=== PATIENT | female | born 1960 | race Caucasian/White ===

== ENCOUNTER 2019-04-30 17:52 | Inpatient (IN) | payer OTHER ==
[2019-04-30] MEDS ORDERED: HYDROmorphone 1 MG/ML Syringe IVPUSH ONE ×2 (18:01→19:55)
[2019-04-30] MEDS ORDERED: Ondansetron 4 MG/2 ML SDV IVPUSH ONE (18:02)
[2019-04-30] MEDS ORDERED: Sodium Chloride 0.9% 1,000 ML IV ONE ×2 (18:24→20:06)
[2019-04-30] MEDS: Sodium Chloride 0.9% 10 ML Syringe FLUSH PRN (18:28)
[2019-04-30 18:33] LABS: CHLORIDE,CL 101 mmol/L (98-107); SODIUM,NA 136 mmol/L (136-145)
[2019-04-30] MEDS ORDERED: Iopamidol 755 Mg/ML 100 ML Bottle IVPUSH ONE (19:13)
--- NOTE | 2019-04-30 20:00 | EDM.PDOC ---
ED HPI GENERAL MEDICAL PROBLEM - General Chief Complaint: Abdominal Pain Stated Complaint: ABDOMINAL PAIN Time Seen by Provider: 04/30/19 18:23 Source of Information: Reports: Patient History Limitations: Reports: No Limitations - History of Present Illness INITIAL COMMENTS - FREE TEXT/NARRATIVE: Patient comes in with complaint of abdominal pain. Pain started around noon. Upper abdominal/bilateral. Similar pain in past when she has had flares of pancreatitis. Always has low level elevation of LFTs/lipase/amylase. Extensive abdominal surgical history. 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 Recently needed ileostomy several years ago. Also has had gallbladder and appendix removed in past. Thinks flare may be due to driving all day in car yesterday/not being able to move around. Noticed transit time increased for morning coffee intake to when it appeared in her bag. No fevers/chills. No emesis. Has nausea. Denies HEENT changes/URI complaints. No respiratory changes such as cough/wheez/sob. No chest pain/back pain complaints. Denies hematuria/UTI complaints. No focal neuro changes/rashes. Says she usually recovers from pancreatitis episodes well when given IV fluids and kept NPO for a day or two. - Related Data Allergies Allergy/AdvReac Type Severity Reaction Status Date / Time morphine Allergy Itching Verified 04/30/19 18:00 Home Meds: Home Meds Acetaminophen [Tylenol] 650 mg PO Q6HR PRN 04/30/19 [History] Cyclobenzaprine [Flexeril] 10 mg PO TID PRN 04/30/19 [History] Ibuprofen 400 mg PO Q6HR PRN 04/30/19 [History] Past Medical History HEENT History: Reports: Cataract, Impaired Vision Gastrointestinal History: Reports: Colon Polyp, Pancreatitis, Other (See Below) (Familial Polyposis Coli) Musculoskeletal History: Reports: Fracture Neurological History: Reports: Migraines, Vertigo Psychiatric History: Reports: Anxiety, Depression Endocrine/Metabolic History: Reports: Other (See Below) Other Endocrine/Metabolic History: 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, - Infectious Disease History Infectious Disease History: Reports: Chicken Pox, Measles, Mumps - Past Surgical History HEENT Surgical History: Reports: Oral Surgery GI Surgical History: Reports: Cholecystectomy, Colostomy, Other (See Below) Other GI Surgeries/Procedures: Stents, scar tissue surgery Female Surgical History: Reports: Hysterectomy Social & Family History - Family History Cardiac: Reports: Afib, Hypertension, [place] Respiratory: Reports: Asthma, COPD GI: Reports: Cirrhosis, Hepatitis : Reports: Renal Disease/Insufficiency Neurological: Reports: Alzheimers Disease Endocrine/Metabolic: Reports: Diabetes, type II Oncologic: Reports: Colon - Tobacco Use Smoking Status *Q: Current Every Day Smoker Years of Tobacco use: 45 Packs/Tins Daily: 0.5 - Caffeine Use Caffeine Use: Reports: Coffee - Alcohol Use Alcohol Use History: Yes Date of Last Drink: 04/29/19 (Single alcoholic drink yesterday) Alcohol Use Frequency: Rarely - Recreational Drug Use Recreational Drug Use: No ED ROS GENERAL - Review of Systems Review Of Systems: ROS reveals no pertinent complaints other than HPI. ED EXAM, GENERAL - Physical Exam Exam: See Below Exam Limited By: No Limitations General Appearance: Alert, WD/WN, No Apparent Distress, Obese Eye Exam: Bilateral Eye: EOMI, PERRL Ears: Normal External Exam, Hearing Grossly Normal Nose: No: Nasal Deformity, Nasal Swelling, Nasal Drainage Throat/Mouth: Normal Lips, Normal Voice, No Airway Compromise Head: Atraumatic, Normocephalic Neck: Normal Inspection, Supple, Non-Tender, Full Range of Motion Respiratory/Chest: No Respiratory Distress, Lungs Clear, Normal Breath Sounds, No Accessory Muscle Use, Chest Non-Tender Cardiovascular: Normal Peripheral Pulses, Regular Rate, Rhythm, No Edema, No Murmur Peripheral Pulses: 2+: Radial (L), Radial (R) GI/Abdominal: Soft, Tender (mild, diffuse), Other (Has ileostomy bag in place. Site appears normal, non-irrititated. Decreased bowel sounds noted. ). No: Guarding, Rigid, Rebound (Female) Exam: Deferred Rectal (Female) Exam: Deferred Back Exam: Normal Inspection. No: CVA Tenderness (L), CVA Tenderness (R), Muscle Spasm, Paraspinal Tenderness, Vertebral Tenderness Extremities: Normal Range of Motion, Normal Capillary Refill, Slow Capillary Refill (slightly decreased) Neurological: Alert, Oriented, Normal Cognition, Normal Gait, No Motor/Sensory Deficits Psychiatric: Normal Affect, Normal Mood Skin Exam: Warm, Dry, Intact, Normal Color Course - Vital Signs Last Recorded V/S: Last Vital Signs Temp 37.1 C 04/30/19 21:54 Pulse 80 04/30/19 21:54 Resp 12 04/30/19 21:54 BP 162/94 H 04/30/19 21:54 Pulse Ox 98 04/30/19 21:54 - Orders/Labs/Meds Orders: Active Orders 24 hr Category Date Time Status Peripheral IV Care [RC] . DIRECTED Care 04/30/19 18:28 Active Abdomen 2V AP Flat Upright [CR] Stat Exams 04/30/19 18:01 Taken Abdomen Pelvis w wo Cont [CT] Stat Exams 04/30/19 19:10 Taken UA W/MICROSCOPIC [URIN] Stat Lab 04/30/19 18:23 Ordered Sodium Chloride 0.9% [Normal Saline] 1,000 ml Med 04/30/19 20:06 Active IV .BOLUS Sodium Chloride 0.9% [Saline Flush] Med 04/30/19 18:27 Active 10 ml FLUSH ASDIRECTED PRN Peripheral IV Insertion Adult [OM.PC] Routine Oth 04/30/19 18:27 Ordered Medication Orders Hydromorphone HCl (Dilaudid) 0.5 mg IVPUSH Q2H PRN PRN Reason: Pain (moderate 4-6) Sodium Chloride (Normal Saline) 1,000 mls @ 250 mls/hr IV .BOLUS ONE Stop: 05/01/19 00:05 Last Admin: 04/30/19 21:06 Dose: 250 mls/hr Sodium Chloride (Normal Saline) 1,000 mls @ 125 mls/hr IV ASDIRECTED HANNAH Ondansetron HCl (Zofran) 4 mg IVPUSH Q6H PRN PRN Reason: Nausea/Vomiting Sodium Chloride (Saline Flush) 10 ml FLUSH ASDIRECTED PRN PRN Reason: Keep Vein Open Last Admin: 04/30/19 18:28 Dose: 10 ml Labs: Laboratory Tests 04/30/19 04/30/19 Range/Units 18:10 18:10 WBC 12.3 H (4.0-10.2) K/uL RBC 4.77 (3.77-5.09) M/uL Hgb 15.8 H (11.7-15.5) g/dL Hct 44.8 (34.0-46.0) % MCV 93.9 (84.0-98.0) fL MCH 33.1 (28.2-33.3) pg MCHC 35.3 (31.7-36.0) g/dL RDW 13.4 (11.2-14.1) % Plt Count 193 (150-350) K/uL Neut % (Auto) 68.0 (45.0-80.0) % Lymph % (Auto) 22.2 (10.0-50.0) % [place] % (Auto) 8.5 (2.0-14.0) % Eos % (Auto) 0.9 (0.0-5.0) % Baso % (Auto) 0.4 (0.0-2.0) % Neut # (Auto) 8.38 H (1.40-7.00) K/uL Lymph # (Auto) 2.74 (0.50-3.50) K/uL [place] # (Auto) 1.05 H (0.00-1.00) K/uL Eos # (Auto) 0.11 (0.00-0.50) K/uL Baso # (Auto) 0.05 (0.00-0.20) K/uL Sodium 136 (136-145) mmol/L Potassium 3.7 (3.5-5.1) mmol/L Chloride 101 (98-107) mmol/L Carbon Dioxide 21.3 (21.0-32.0) mmol/L BUN 15 (7-18) mg/dL Creatinine 0.81 (0.51-1.17) mg/dL Est Cr Clr Drug Dosing TNP Estimated GFR (MDRD) > 60 mL/min Glucose 98 (74-106) mg/dL Calcium 9.5 (8.5-10.1) mg/dL Total Bilirubin 0.5 (0.2-1.0) mg/dL AST 61 H (15-37) U/L ALT 113 H (12-78) U/L Alkaline Phosphatase 110 (46-116) IU/L Total Protein 7.4 (6.4-8.2) g/dL Albumin 4.0 (3.4-5.0) g/dL Amylase 787 H (25-115) U/L Lipase 6878 H (73-393) U/L Meds: Medications Generic Name Dose Route Start Last Admin Trade Name Freq PRN Reason Stop Dose Admin Hydromorphone HCl 0.5 mg 04/30/19 21:59 Dilaudid IVPUSH Q2H PRN Pain (moderate 4-6) Sodium Chloride 1,000 mls @ 250 mls/hr 04/30/19 20:06 04/30/19 21:06 Normal Saline IV 05/01/19 00:05 250 mls/hr .BOLUS ONE Administration Sodium Chloride 1,000 mls @ 125 mls/hr 04/30/19 22:15 Normal Saline IV ASDIRECTED HANNAH Ondansetron HCl 4 mg 04/30/19 21:59 Zofran IVPUSH Q6H PRN Nausea/Vomiting Sodium Chloride 10 ml 04/30/19 18:27 04/30/19 18:28 Saline Flush FLUSH 10 ml ASDIRECTED PRN Administration Keep Vein Open Discontinued Medications Generic Name Dose Route Start Last Admin Trade Name Freq PRN Reason Stop Dose Admin Hydromorphone HCl 1 mg 04/30/19 18:01 04/30/19 18:20 Dilaudid IVPUSH 04/30/19 18:02 1 mg ONETIME ONE Administration Hydromorphone HCl 1 mg 04/30/19 19:55 04/30/19 20:46 Dilaudid IVPUSH 04/30/19 19:56 1 mg ONETIME ONE Administration Sodium Chloride 1,000 mls @ 500 mls/hr 04/30/19 18:24 04/30/19 18:44 Normal Saline IV 04/30/19 20:23 500 mls/hr .BOLUS ONE Administration Iopamidol 100 ml 04/30/19 19:13 04/30/19 19:48 Isovue-370 (76%) IVPUSH 04/30/19 19:14 100 ml ONETIME ONE Administration Ondansetron HCl 4 mg 04/30/19 18:02 04/30/19 18:18 Zofran IVPUSH 04/30/19 18:03 4 mg ONETIME ONE Administration - Radiology Interpretation Free Text/Narrative:: Xray of abdomen performed followed by CT once pancreatic amylase/lipase noted to be significantly elevated. CT Results Date: 04/30/19 CT Results Time: 21:06 (Changes consistent with pancreatitis. No other acute abnormalities/infection/gangrene noted) - Re-Assessments/Exams Free Text/Narrative Re-Assessment/Exam: 04/30/19 20:05 Mildly elevated WBC. LFTs/Amylase and Lipase elevated. Dilaudid given for pain. NS bolus given. Pain improved. Free Text/Narrative Re-Assessment/Exam: 04/30/19 22:23 Patient admitted to Observation for IV fluids and pain management once CT results indicated pancreatis without any other complications. Departure - Departure Time of Disposition: 21:30 Disposition: Refer to Observation Condition: Good Clinical Impression: Pancreatitis Qualifiers: Chronicity: acute Pancreatitis type: unspecified pancreatitis type Acute pancreatitis complication: no infection or necrosis Qualified Code(s): K85.90 - Acute pancreatitis without necrosis or infection, unspecified - Discharge Information *PRESCRIPTION DRUG MONITORING PROGRAM REVIEWED*: Not Applicable *COPY OF PRESCRIPTION DRUG MONITORING REPORT IN PATIENT DANGELO: Not Applicable - Problem List & Annotations (1) Pancreatitis SNOMED Code(s): 76794599 Code(s): K85.90 - ACUTE PANCREATITIS WITHOUT NECROSIS OR INFECTION, UNSP Status: Acute Priority: High Current Visit: Yes Annotation/Comment:: Acute pancreatitis. Patient does have chronic elevation of lipase/amylase per self report. Also usually has mildly elevated AST and ALT. CT did not indicate abscess or necrosis. Will admit observation, place patient NPO, and give pain and fluid support. Patient reports that she usually improves within several days when pancreatitis flairs. Qualifiers: Chronicity: acute Pancreatitis type: unspecified pancreatitis type Acute pancreatitis complication: no infection or necrosis Qualified Code(s): K85.90 - Acute pancreatitis without necrosis or infection, unspecified (2) Ileostomy in place SNOMED Code(s): 087141470 Code(s): Z93.2 - ILEOSTOMY STATUS Status: Chronic Priority: Low Current Visit: No Annotation/Comment:: No acute concerns at this time (3) LONGTERM (familial polyposis coli) SNOMED Code(s): 15031240 Code(s): D12.6 - BENIGN NEOPLASM OF COLON, UNSPECIFIED Status: Chronic Priority: Low Current Visit: No Annotation/Comment:: History of LONGTERM. Prophylactic removal of colon. - Problem List Review Problem List Initiated/Reviewed/Updated: Yes - My Orders Last 24 Hours: My Active Orders 04/30/19 18:01 Abdomen 2V AP Flat Upright [CR] Stat 04/30/19 18:23 UA W/MICROSCOPIC [URIN] Stat 04/30/19 18:27 Sodium Chloride 0.9% [Saline Flush] 10 ml FLUSH ASDIRECTED PRN Peripheral IV Insertion Adult [OM.PC] Routine 04/30/19 18:28 Peripheral IV Care [RC] . DIRECTED 04/30/19 19:10 Abdomen Pelvis w wo Cont [CT] Stat 04/30/19 20:06 Sodium Chloride 0.9% [Normal Saline] 1,000 ml IV .BOLUS - Assessment/Plan Admission H&P: Please use this note as an admission H&P Last 24 Hours: My Active Orders 04/30/19 18:01 Abdomen 2V AP Flat Upright [CR] Stat 04/30/19 18:23 UA W/MICROSCOPIC [URIN] Stat 04/30/19 18:27 Sodium Chloride 0.9% [Saline Flush] 10 ml FLUSH ASDIRECTED PRN Peripheral IV Insertion Adult [OM.PC] Routine 04/30/19 18:28 Peripheral IV Care [RC] . DIRECTED 04/30/19 19:10 Abdomen Pelvis w wo Cont [CT] Stat 04/30/19 20:06 Sodium Chloride 0.9% [Normal Saline] 1,000 ml IV .BOLUS Assessment:: as above Plan: as above. Admit observation. Anticipate 2 days inpatient care but may need to consider switch to inpatient status in pancreatitis does not improve over this timeframe. Patient stable and appropriate for general supervision.
[2019-04-30] MEDS: HYDROmorphone 0.5 MG/0.5 ML Syringe IVPUSH PRN (22:24)
[2019-04-30] MEDS: Ondansetron 4 MG/2 ML SDV IVPUSH PRN (22:24)
[2019-05-01] MEDS: HYDROmorphone 0.5 MG/0.5 ML Syringe IVPUSH PRN ×4 (00:21→23:30)
[2019-05-01] MEDS: Sodium Chloride 0.9% 1,000 ML IV SCH ×3 (01:22→18:03)
[2019-05-01] MEDS: fentaNYL 100 MCG/2 ML SDV IVPUSH PRN ×9 (01:47→21:29)
[2019-05-01] MEDS: Ondansetron 4 MG/2 ML SDV IVPUSH PRN ×5 (03:41→20:12)
[2019-05-01] MEDS: Sodium Chloride 0.9% 10 ML Syringe FLUSH PRN ×4 (03:42→21:30)
[2019-05-01 07:27] LABS: CHLORIDE,CL 105 mmol/L (98-107); SODIUM,NA 139 mmol/L (136-145)
--- NOTE | 2019-05-01 08:26 | EDM.PDOC ---
ED HPI GENERAL MEDICAL PROBLEM - General Chief Complaint: Abdominal Pain Stated Complaint: ABDOMINAL PAIN Time Seen by Provider: 04/30/19 18:23 Source of Information: Reports: Patient History Limitations: Reports: No Limitations - History of Present Illness INITIAL COMMENTS - FREE TEXT/NARRATIVE: Patient comes in with complaint of abdominal pain. Pain started around noon. Upper abdominal/bilateral. Similar pain in past when she has had flares of pancreatitis. Always has low level elevation of LFTs/lipase/amylase. Extensive abdominal surgical history. 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 Recently needed ileostomy several years ago. Also has had gallbladder and appendix removed in past. Thinks flare may be due to driving all day in car yesterday/not being able to move around. Noticed transit time increased for morning coffee intake to when it appeared in her bag. No fevers/chills. No emesis. Has nausea. Denies HEENT changes/URI complaints. No respiratory changes such as cough/wheez/sob. No chest pain/back pain complaints. Denies hematuria/UTI complaints. No focal neuro changes/rashes. Says she usually recovers from pancreatitis episodes well when given IV fluids and kept NPO for a day or two. Abdomen Pain Score (Numeric/FACES): 7 - Related Data Allergies Allergy/AdvReac Type Severity Reaction Status Date / Time morphine Allergy Itching Verified 04/30/19 18:00 Home Meds: Home Meds Acetaminophen [Tylenol] 650 mg PO Q6HR PRN 04/30/19 [History] Cyclobenzaprine [Flexeril] 10 mg PO TID PRN 04/30/19 [History] Ibuprofen 400 mg PO Q6HR PRN 04/30/19 [History] Past Medical History HEENT History: Reports: Cataract, Impaired Vision Gastrointestinal History: Reports: Colon Polyp, Pancreatitis, Other (See Below) (Familial Polyposis Coli) Musculoskeletal History: Reports: Fracture Neurological History: Reports: Migraines, Vertigo Psychiatric History: Reports: Anxiety, Depression Endocrine/Metabolic History: Reports: Other (See Below) Other Endocrine/Metabolic History: 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, - Infectious Disease History Infectious Disease History: Reports: Chicken Pox, Measles, Mumps - Past Surgical History HEENT Surgical History: Reports: Oral Surgery GI Surgical History: Reports: Cholecystectomy, Colostomy, Other (See Below) Other GI Surgeries/Procedures: Stents, scar tissue surgery Female Surgical History: Reports: Hysterectomy Social & Family History - Family History Cardiac: Reports: Afib, Hypertension, [place] Respiratory: Reports: Asthma, COPD GI: Reports: Cirrhosis, Hepatitis : Reports: Renal Disease/Insufficiency Neurological: Reports: Alzheimers Disease Endocrine/Metabolic: Reports: Diabetes, type II Oncologic: Reports: Colon - Tobacco Use Smoking Status *Q: Current Every Day Smoker Years of Tobacco use: 45 Packs/Tins Daily: 0.5 - Caffeine Use Caffeine Use: Reports: Coffee - Alcohol Use Date of Last Drink: 04/29/19 (Single alcoholic drink yesterday) - Recreational Drug Use Recreational Drug Use: No ED ROS GENERAL - Review of Systems Review Of Systems: See Below Constitutional: Reports: No Symptoms HEENT: Reports: No Symptoms Respiratory: Reports: No Symptoms Cardiovascular: Reports: No Symptoms Endocrine: Reports: No Symptoms ED EXAM, GENERAL - Physical Exam Exam: See Below Free Text/Narrative:: Patient comes in with complaint of abdominal pain. Pain started around noon. Upper abdominal/bilateral. Similar pain in past when she has had flares of pancreatitis. Always has low level elevation of LFTs/lipase/amylase. Extensive abdominal surgical history. 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 Recently needed ileostomy several years ago. Also has had gallbladder and appendix removed in past. Thinks flare may be due to driving all day in car yesterday/not being able to move around. Noticed transit time increased for morning coffee intake to when it appeared in her bag. No fevers/chills. No emesis. Has nausea. Denies HEENT changes/URI complaints. No respiratory changes such as cough/wheez/sob. No chest pain/back pain complaints. Denies hematuria/UTI complaints. No focal neuro changes/rashes. Says she usually recovers from pancreatitis episodes well when given IV fluids and kept NPO for a day or two. Exam Limited By: No Limitations General Appearance: Alert, WD/WN, No Apparent Distress, Obese Ears: Normal External Exam, Hearing Grossly Normal Nose: No: Nasal Deformity, Nasal Swelling, Nasal Drainage Throat/Mouth: Normal Lips, Normal Voice, No Airway Compromise Head: Atraumatic, Normocephalic Neck: Normal Inspection, Supple, Non-Tender, Full Range of Motion Respiratory/Chest: No Respiratory Distress, Lungs Clear, Normal Breath Sounds, No Accessory Muscle Use, Chest Non-Tender Cardiovascular: Normal Peripheral Pulses, Regular Rate, Rhythm, No Edema, No Murmur Peripheral Pulses: 2+: Radial (L), Radial (R) GI/Abdominal: Soft, Tender (mild, diffuse), Other (Has ileostomy bag in place. Site appears normal, non-irrititated. Decreased bowel sounds noted. ). No: Guarding, Rigid, Rebound Back Exam: Normal Inspection. No: CVA Tenderness (L), CVA Tenderness (R), Muscle Spasm, Paraspinal Tenderness, Vertebral Tenderness Extremities: Normal Range of Motion, Normal Capillary Refill, Slow Capillary Refill (slightly decreased) Neurological: Alert, Oriented, Normal Cognition, Normal Gait, No Motor/Sensory Deficits Psychiatric: Normal Affect, Normal Mood Skin Exam: Warm, Dry, Intact, Normal Color Course - Vital Signs Last Recorded V/S: Last Vital Signs Temp 36.5 C 05/01/19 06:00 Pulse 81 05/01/19 06:00 Resp 14 05/01/19 06:00 BP 159/79 H 05/01/19 06:00 Pulse Ox 98 05/01/19 06:00 - Orders/Labs/Meds Orders: Active Orders 24 hr Category Date Time Status Peripheral IV Care [RC] . DIRECTED Care 04/30/19 18:28 Active Abdomen 2V AP Flat Upright [CR] Stat Exams 04/30/19 18:01 Taken Abdomen Pelvis w wo Cont [CT] Stat Exams 04/30/19 19:10 Taken Sodium Chloride 0.9% [Saline Flush] Med 04/30/19 18:27 Active 10 ml FLUSH ASDIRECTED PRN Peripheral IV Insertion Adult [OM.PC] Routine Oth 04/30/19 18:27 Ordered Medication Orders Fentanyl (Sublimaze) 50 mcg IVPUSH Q2HR PRN PRN Reason: Pain (severe 7-10) Last Admin: 05/01/19 08:08 Dose: 50 mcg Admin: 05/01/19 05:59 Dose: 50 mcg Admin: 05/01/19 03:43 Dose: 50 mcg Admin: 05/01/19 01:47 Dose: 50 mcg Hydromorphone HCl (Dilaudid) 0.5 mg IVPUSH Q2H PRN PRN Reason: Pain (moderate 4-6) Last Admin: 05/01/19 00:21 Dose: 0.5 mg Admin: 04/30/19 22:24 Dose: 0.5 mg Sodium Chloride (Normal Saline) 1,000 mls @ 125 mls/hr IV ASDIRECTED HANNAH Last Admin: 05/01/19 01:22 Dose: 125 mls/hr Ondansetron HCl (Zofran) 4 mg IVPUSH Q4HR PRN PRN Reason: Nausea/Vomiting Last Admin: 05/01/19 08:06 Dose: 4 mg Sodium Chloride (Saline Flush) 10 ml FLUSH ASDIRECTED PRN PRN Reason: Keep Vein Open Last Admin: 05/01/19 08:10 Dose: 10 ml Admin: 05/01/19 03:42 Dose: 10 ml Admin: 04/30/19 18:28 Dose: 10 ml Labs: Laboratory Tests 04/30/19 04/30/19 04/30/19 Range/Units 18:10 18:10 18:23 WBC 12.3 H (4.0-10.2) K/uL RBC 4.77 (3.77-5.09) M/uL Hgb 15.8 H (11.7-15.5) g/dL Hct 44.8 (34.0-46.0) % MCV 93.9 (84.0-98.0) fL MCH 33.1 (28.2-33.3) pg MCHC 35.3 (31.7-36.0) g/dL RDW 13.4 (11.2-14.1) % Plt Count 193 (150-350) K/uL Neut % (Auto) 68.0 (45.0-80.0) % Lymph % (Auto) 22.2 (10.0-50.0) % [place] % (Auto) 8.5 (2.0-14.0) % Eos % (Auto) 0.9 (0.0-5.0) % Baso % (Auto) 0.4 (0.0-2.0) % Neut # (Auto) 8.38 H (1.40-7.00) K/uL Lymph # (Auto) 2.74 (0.50-3.50) K/uL [place] # (Auto) 1.05 H (0.00-1.00) K/uL Eos # (Auto) 0.11 (0.00-0.50) K/uL Baso # (Auto) 0.05 (0.00-0.20) K/uL Sodium 136 (136-145) mmol/L Potassium 3.7 (3.5-5.1) mmol/L Chloride 101 (98-107) mmol/L Carbon Dioxide 21.3 (21.0-32.0) mmol/L BUN 15 (7-18) mg/dL Creatinine 0.81 (0.51-1.17) mg/dL Est Cr Clr Drug Dosing TNP Estimated GFR (MDRD) > 60 mL/min Glucose 98 (74-106) mg/dL Calcium 9.5 (8.5-10.1) mg/dL Total Bilirubin 0.5 (0.2-1.0) mg/dL AST 61 H (15-37) U/L ALT 113 H (12-78) U/L Alkaline Phosphatase 110 (46-116) IU/L Total Protein 7.4 (6.4-8.2) g/dL Albumin 4.0 (3.4-5.0) g/dL Amylase 787 H (25-115) U/L Lipase 6878 H (73-393) U/L Specimen Type Urinblad Urine Color Yellow Urine Appearance Clear Urine pH 5.0 (5.0-9.0) Ur Specific [place] <= 1.005 (1.005-1.030) Urine Protein Negative (NEGATIVE) mg/dL Urine Glucose (UA) Negative (NEGATIVE) mg/dL Urine Ketones Negative (NEGATIVE) mg/dL Urine Occult Blood Negative (NEGATIVE) Urine Nitrite Negative (NEGATIVE) Urine Bilirubin Negative (NEGATIVE) Urine Urobilinogen 0.2 (0.2-1.0) E.U./dL Ur Leukocyte Esterase Negative (NEGATIVE) Urine RBC 0-5 /HPF Urine WBC 5-10 H /HPF Ur Epithelial Cells Many H /LPF Urine Bacteria Few (NONE TO FEW) /HPF Hyaline Casts Rare H (NEGATIVE) /LPF Urine Yeast Rare H (NEGATIVE) /HPF Meds: Medications Generic Name Dose Route Start Last Admin Trade Name Freq PRN Reason Stop Dose Admin Fentanyl 50 mcg 05/01/19 01:26 05/01/19 08:08 Sublimaze IVPUSH 50 mcg Q2HR PRN Administration Pain (severe 7-10) Hydromorphone HCl 0.5 mg 04/30/19 21:59 05/01/19 00:21 Dilaudid IVPUSH 0.5 mg Q2H PRN Administration Pain (moderate 4-6) Sodium Chloride 1,000 mls @ 125 mls/hr 04/30/19 22:15 05/01/19 01:22 Normal Saline IV 125 mls/hr ASDIRECTED HANNAH Administration Ondansetron HCl 4 mg 05/01/19 07:51 05/01/19 08:06 Zofran IVPUSH 4 mg Q4HR PRN Administration Nausea/Vomiting Sodium Chloride 10 ml 04/30/19 18:27 05/01/19 08:10 Saline Flush FLUSH 10 ml ASDIRECTED PRN Administration Keep Vein Open Discontinued Medications Generic Name Dose Route Start Last Admin Trade Name Freq PRN Reason Stop Dose Admin Hydromorphone HCl 1 mg 04/30/19 18:01 04/30/19 18:20 Dilaudid IVPUSH 04/30/19 18:02 1 mg ONETIME ONE Administration Hydromorphone HCl 1 mg 04/30/19 19:55 04/30/19 20:46 Dilaudid IVPUSH 04/30/19 19:56 1 mg ONETIME ONE Administration Sodium Chloride 1,000 mls @ 500 mls/hr 04/30/19 18:24 04/30/19 18:44 Normal Saline IV 04/30/19 20:23 500 mls/hr .BOLUS ONE Administration Sodium Chloride 1,000 mls @ 250 mls/hr 04/30/19 20:06 04/30/19 21:06 Normal Saline IV 05/01/19 00:05 250 mls/hr .BOLUS ONE Administration Iopamidol 100 ml 04/30/19 19:13 04/30/19 19:48 Isovue-370 (76%) IVPUSH 04/30/19 19:14 100 ml ONETIME ONE Administration Ondansetron HCl 4 mg 04/30/19 18:02 04/30/19 18:18 Zofran IVPUSH 04/30/19 18:03 4 mg ONETIME ONE Administration Ondansetron HCl 4 mg 04/30/19 21:59 05/01/19 03:41 Zofran IVPUSH 4 mg Q6H PRN Administration Nausea/Vomiting Departure - Departure Disposition: Refer to Observation Condition: Good Clinical Impression: Pancreatitis Qualifiers: Chronicity: acute Pancreatitis type: unspecified pancreatitis type Acute pancreatitis complication: no infection or necrosis Qualified Code(s): K85.90 - Acute pancreatitis without necrosis or infection, unspecified - Discharge Information *PRESCRIPTION DRUG MONITORING PROGRAM REVIEWED*: Not Applicable *COPY OF PRESCRIPTION DRUG MONITORING REPORT IN PATIENT DANGELO: Not Applicable
--- NOTE | 2019-05-01 10:16 | PCM.PN ---
- General Info Date of Service: 05/01/19 Admission Dx/Problem (Free Text): Pancreatitis Subjective Update: Complaining of diffuse abdominal pain more severe in epigastrium and RUQ. No fever or chills. Pain controlled with fentanyl. No shortness of breath. No chest pain. - Patient Data Vitals - Most Recent: Last Vital Signs Temp 36.5 C 05/01/19 06:00 Pulse 81 05/01/19 06:00 Resp 14 05/01/19 06:00 BP 159/79 H 05/01/19 06:00 Pulse Ox 98 05/01/19 06:00 Weight - Most Recent: 78.245 kg I&O - Last 24 Hours: Intake & Output 04/30/19 05/01/19 05/01/19 22:59 06:59 14:59 Intake Total 1000 Output Total 400 Balance 600 Lab Results Last 24 Hours: Laboratory Results - last 24 hr 04/30/19 04/30/19 04/30/19 Range/Units 18:10 18:10 18:23 WBC 12.3 H (4.0-10.2) K/uL RBC 4.77 (3.77-5.09) M/uL Hgb 15.8 H (11.7-15.5) g/dL Hct 44.8 (34.0-46.0) % MCV 93.9 (84.0-98.0) fL MCH 33.1 (28.2-33.3) pg MCHC 35.3 (31.7-36.0) g/dL RDW 13.4 (11.2-14.1) % Plt Count 193 (150-350) K/uL Neut % (Auto) 68.0 (45.0-80.0) % Lymph % (Auto) 22.2 (10.0-50.0) % [place] % (Auto) 8.5 (2.0-14.0) % Eos % (Auto) 0.9 (0.0-5.0) % Baso % (Auto) 0.4 (0.0-2.0) % Neut # (Auto) 8.38 H (1.40-7.00) K/uL Lymph # (Auto) 2.74 (0.50-3.50) K/uL [place] # (Auto) 1.05 H (0.00-1.00) K/uL Eos # (Auto) 0.11 (0.00-0.50) K/uL Baso # (Auto) 0.05 (0.00-0.20) K/uL Sodium 136 (136-145) mmol/L Potassium 3.7 (3.5-5.1) mmol/L Chloride 101 (98-107) mmol/L Carbon Dioxide 21.3 (21.0-32.0) mmol/L BUN 15 (7-18) mg/dL Creatinine 0.81 (0.51-1.17) mg/dL Est Cr Clr Drug Dosing TNP Estimated GFR (MDRD) > 60 mL/min Glucose 98 (74-106) mg/dL Calcium 9.5 (8.5-10.1) mg/dL Magnesium (1.8-2.4) mg/dL Total Bilirubin 0.5 (0.2-1.0) mg/dL AST 61 H (15-37) U/L ALT 113 H (12-78) U/L Alkaline Phosphatase 110 (46-116) IU/L Total Protein 7.4 (6.4-8.2) g/dL Albumin 4.0 (3.4-5.0) g/dL Amylase 787 H (25-115) U/L Lipase 6878 H (73-393) U/L Specimen Type Urinblad Urine Color Yellow Urine Appearance Clear Urine pH 5.0 (5.0-9.0) Ur Specific [place] <= 1.005 (1.005-1.030) Urine Protein Negative (NEGATIVE) mg/dL Urine Glucose (UA) Negative (NEGATIVE) mg/dL Urine Ketones Negative (NEGATIVE) mg/dL Urine Occult Blood Negative (NEGATIVE) Urine Nitrite Negative (NEGATIVE) Urine Bilirubin Negative (NEGATIVE) Urine Urobilinogen 0.2 (0.2-1.0) E.U./dL Ur Leukocyte Esterase Negative (NEGATIVE) Urine RBC 0-5 /HPF Urine WBC 5-10 H /HPF Ur Epithelial Cells Many H /LPF Urine Bacteria Few (NONE TO FEW) /HPF Hyaline Casts Rare H (NEGATIVE) /LPF Urine Yeast Rare H (NEGATIVE) /HPF 05/01/19 05/01/19 05/01/19 Range/Units 06:59 06:59 06:59 WBC 11.7 H (4.0-10.2) K/uL RBC 4.37 (3.77-5.09) M/uL Hgb 14.3 D (11.7-15.5) g/dL Hct 41.9 (34.0-46.0) % MCV 95.9 (84.0-98.0) fL MCH 32.7 (28.2-33.3) pg MCHC 34.1 (31.7-36.0) g/dL RDW 13.5 (11.2-14.1) % Plt Count 143 L (150-350) K/uL Neut % (Auto) 78.0 (45.0-80.0) % Lymph % (Auto) 13.9 (10.0-50.0) % [place] % (Auto) 7.6 (2.0-14.0) % Eos % (Auto) 0.3 (0.0-5.0) % Baso % (Auto) 0.2 (0.0-2.0) % Neut # (Auto) 9.12 H (1.40-7.00) K/uL Lymph # (Auto) 1.62 (0.50-3.50) K/uL [place] # (Auto) 0.89 (0.00-1.00) K/uL Eos # (Auto) 0.03 (0.00-0.50) K/uL Baso # (Auto) 0.02 (0.00-0.20) K/uL Sodium 139 (136-145) mmol/L Potassium 3.4 L (3.5-5.1) mmol/L Chloride 105 (98-107) mmol/L Carbon Dioxide 23.3 (21.0-32.0) mmol/L BUN 10 (7-18) mg/dL Creatinine 0.70 (0.51-1.17) mg/dL Est Cr Clr Drug Dosing 80.01 Estimated GFR (MDRD) > 60 mL/min Glucose 109 H (74-106) mg/dL Calcium 8.0 L D (8.5-10.1) mg/dL Magnesium 1.3 L (1.8-2.4) mg/dL Total Bilirubin 0.7 (0.2-1.0) mg/dL AST 34 (15-37) U/L ALT 80 H (12-78) U/L Alkaline Phosphatase 99 (46-116) IU/L Total Protein 6.1 L (6.4-8.2) g/dL Albumin 3.1 L (3.4-5.0) g/dL Amylase 782 H (25-115) U/L Lipase 5626 H (73-393) U/L Specimen Type Urine Color Urine Appearance Urine pH (5.0-9.0) Ur Specific [place] (1.005-1.030) Urine Protein (NEGATIVE) mg/dL Urine Glucose (UA) (NEGATIVE) mg/dL Urine Ketones (NEGATIVE) mg/dL Urine Occult Blood (NEGATIVE) Urine Nitrite (NEGATIVE) Urine Bilirubin (NEGATIVE) Urine Urobilinogen (0.2-1.0) E.U./dL Ur Leukocyte Esterase (NEGATIVE) Urine RBC /HPF Urine WBC /HPF Ur Epithelial Cells /LPF Urine Bacteria (NONE TO FEW) /HPF Hyaline Casts (NEGATIVE) /LPF Urine Yeast (NEGATIVE) /HPF Med Orders - Current: Current Medications Fentanyl (Sublimaze) 50 mcg IVPUSH Q2HR PRN PRN Reason: Pain (severe 7-10) Last Admin: 05/01/19 08:08 Dose: 50 mcg Hydromorphone HCl (Dilaudid) 0.5 mg IVPUSH Q2H PRN PRN Reason: Pain (moderate 4-6) Last Admin: 05/01/19 00:21 Dose: 0.5 mg Sodium Chloride (Normal Saline) 1,000 mls @ 125 mls/hr IV ASDIRECTED [facility] Last Admin: 05/01/19 09:42 Dose: 125 mls/hr Ondansetron HCl (Zofran) 4 mg IVPUSH Q4HR PRN PRN Reason: Nausea/Vomiting Last Admin: 05/01/19 08:06 Dose: 4 mg Sodium Chloride (Saline Flush) 10 ml FLUSH ASDIRECTED PRN PRN Reason: Keep Vein Open Last Admin: 05/01/19 08:10 Dose: 10 ml Discontinued Medications Hydromorphone HCl (Dilaudid) 1 mg IVPUSH ONETIME ONE Stop: 04/30/19 18:02 Last Admin: 04/30/19 18:20 Dose: 1 mg Hydromorphone HCl (Dilaudid) 1 mg IVPUSH ONETIME ONE Stop: 04/30/19 19:56 Last Admin: 04/30/19 20:46 Dose: 1 mg Sodium Chloride (Normal Saline) 1,000 mls @ 500 mls/hr IV .BOLUS ONE Stop: 04/30/19 20:23 Last Admin: 04/30/19 18:44 Dose: 500 mls/hr Sodium Chloride (Normal Saline) 1,000 mls @ 250 mls/hr IV .BOLUS ONE Stop: 05/01/19 00:05 Last Admin: 04/30/19 21:06 Dose: 250 mls/hr Iopamidol (Isovue-370 (76%)) 100 ml IVPUSH ONETIME ONE Stop: 04/30/19 19:14 Last Admin: 04/30/19 19:48 Dose: 100 ml Ondansetron HCl (Zofran) 4 mg IVPUSH ONETIME ONE Stop: 04/30/19 18:03 Last Admin: 04/30/19 18:18 Dose: 4 mg Ondansetron HCl (Zofran) 4 mg IVPUSH Q6H PRN PRN Reason: Nausea/Vomiting Last Admin: 05/01/19 03:41 Dose: 4 mg - Exam Lungs: Clear to Auscultation, Normal Respiratory Effort Cardiovascular: Regular Rate, Regular Rhythm GI/Abdominal Exam: Normal Bowel Sounds, Soft, Tender (Moderate to severe diffuse tenderness.). No: Distended, Guarding, Rebound - Problem List & Annotations (1) Pancreatitis SNOMED Code(s): 13604281 Code(s): K85.90 - ACUTE PANCREATITIS WITHOUT NECROSIS OR INFECTION, UNSP Status: Acute Priority: High Current Visit: Yes Qualifiers: Chronicity: acute Pancreatitis type: unspecified pancreatitis type Acute pancreatitis complication: no infection or necrosis Qualified Code(s): K85.90 - Acute pancreatitis without necrosis or infection, unspecified Annotation/Comment:: Acute pancreatitis. Patient does have chronic elevation of lipase/amylase per self report. Also usually has mildly elevated AST and ALT. CT did not indicate abscess or necrosis. Will admit observation, place patient NPO, and give pain and fluid support. Patient reports that she usually improves within several days when pancreatitis flairs. (2) Ileostomy in place SNOMED Code(s): 949227322 Code(s): Z93.2 - ILEOSTOMY STATUS Status: Chronic Priority: Low Current Visit: No Annotation/Comment:: No acute concerns at this time - Problem List Review Problem List Initiated/Reviewed/Updated: Yes - My Orders Last 24 Hours: My Active Orders 05/01/19 10:09 Patient Status [ADT] Routine - Assessment Assessment:: Pancreatitis - Plan Plan:: Continue IV fluids and pain control. NPO.
[2019-05-01] MEDS: Saliva Substitute Oral Spray 120 ML Bottle MUCMEM PRN ×2 (10:49→19:28)
[2019-05-01] MEDS: Acetaminophen 325 MG Tab PO PRN (23:30)
[2019-05-01] MEDS: Nicotine 21 MG/24 Hr Patch TRDERM SCH (23:37)
[2019-05-02] MEDS: Ondansetron 4 MG/2 ML SDV IVPUSH PRN ×6 (00:08→20:29)
[2019-05-02] MEDS: Sodium Chloride 0.9% 10 ML Syringe FLUSH PRN ×3 (00:08→05:53)
[2019-05-02] MEDS: HYDROmorphone 0.5 MG/0.5 ML Syringe IVPUSH PRN ×10 (02:13→23:57)
[2019-05-02] MEDS: Acetaminophen 325 MG Tab PO PRN ×2 (04:26→09:33)
[2019-05-02] MEDS: Sodium Chloride 0.9% 1,000 ML IV SCH (07:19)
[2019-05-02] MEDS: Nicotine 21 MG/24 Hr Patch TRDERM SCH (07:49)
[2019-05-02 08:07] LABS: CHLORIDE,CL 104 mmol/L (98-107); SODIUM,NA 140 mmol/L (136-145)
--- NOTE | 2019-05-02 09:54 | PCM.PN ---
- General Info Date of Service: 05/02/19 Admission Dx/Problem (Free Text): Pancreatitis Subjective Update: Doing much better this morning. Abdominal pain down to 4-5/10. Complaining of a headache. No shortness of breath. No chest pain or tightness. - Patient Data Vitals - Most Recent: Last Vital Signs Temp 37.0 C 05/02/19 08:03 Pulse 72 05/02/19 04:48 Resp 19 05/02/19 04:48 BP 127/67 05/02/19 04:48 Pulse Ox 96 05/02/19 04:48 Weight - Most Recent: 78.245 kg I&O - Last 24 Hours: Intake & Output 05/01/19 05/02/19 05/02/19 22:59 06:59 14:59 Intake Total 1435 944 Output Total 1365 275 Balance 70 669 Lab Results Last 24 Hours: Laboratory Results - last 24 hr 05/02/19 05/02/19 Range/Units 07:10 07:10 WBC 12.1 H (4.0-10.2) K/uL RBC 3.74 L (3.77-5.09) M/uL Hgb 12.2 D (11.7-15.5) g/dL Hct 36.8 (34.0-46.0) % MCV 98.4 H (84.0-98.0) fL MCH 32.6 (28.2-33.3) pg MCHC 33.2 (31.7-36.0) g/dL RDW 13.7 (11.2-14.1) % Plt Count 132 L (150-350) K/uL Neut % (Auto) 71.1 (45.0-80.0) % Lymph % (Auto) 18.2 (10.0-50.0) % [place] % (Auto) 9.8 (2.0-14.0) % Eos % (Auto) 0.7 (0.0-5.0) % Baso % (Auto) 0.2 (0.0-2.0) % Neut # (Auto) 8.58 H (1.40-7.00) K/uL Lymph # (Auto) 2.20 (0.50-3.50) K/uL [place] # (Auto) 1.18 H (0.00-1.00) K/uL Eos # (Auto) 0.09 (0.00-0.50) K/uL Baso # (Auto) 0.03 (0.00-0.20) K/uL Sodium 140 (136-145) mmol/L Potassium 3.0 L (3.5-5.1) mmol/L Chloride 104 (98-107) mmol/L Carbon Dioxide 27.8 (21.0-32.0) mmol/L BUN 7 (7-18) mg/dL Creatinine 0.65 (0.51-1.17) mg/dL Est Cr Clr Drug Dosing 86.63 mL/min Estimated GFR (MDRD) > 60 mL/min Glucose 91 (74-106) mg/dL Calcium 7.9 L (8.5-10.1) mg/dL Total Bilirubin 0.7 (0.2-1.0) mg/dL AST 20 (15-37) U/L ALT 48 (12-78) U/L Alkaline Phosphatase 77 (46-116) IU/L Total Protein 5.5 L (6.4-8.2) g/dL Albumin 2.4 L (3.4-5.0) g/dL Amylase 391 H (25-115) U/L Lipase 2484 H (73-393) U/L Med Orders - Current: Current Medications Acetaminophen (Tylenol) 650 mg PO Q4H PRN PRN Reason: Pain/Fever Last Admin: 05/02/19 09:33 Dose: 650 mg Fentanyl (Sublimaze) 50 mcg IVPUSH Q2HR PRN PRN Reason: Pain (severe 7-10) Last Admin: 05/01/19 21:29 Dose: 50 mcg Heparin Sodium (Porcine) (Heparin Lock Flush 100 Units/Ml) 500 units FLUSH ASDIRECTED PRN PRN Reason: port flush Hydromorphone HCl (Dilaudid) 0.5 mg IVPUSH Q2H PRN PRN Reason: Pain (moderate 4-6) Last Admin: 05/02/19 07:49 Dose: 0.5 mg Sodium Chloride (Normal Saline) 1,000 mls @ 75 mls/hr IV ASDIRECTED [facility] Last Admin: 05/02/19 07:19 Dose: 75 mls/hr Potassium Chloride/Sodium Chloride (Normal Saline With 20 Meq Kcl) 1,000 mls @ 75 mls/hr IV ASDIRECTED [facility] Nicotine (Habitrol) 21 mg TRDERM DAILY [facility] Last Admin: 05/02/19 07:49 Dose: 21 mg Ondansetron HCl (Zofran) 4 mg IVPUSH Q4HR PRN PRN Reason: Nausea/Vomiting Last Admin: 05/02/19 08:24 Dose: 4 mg Potassium Chloride (Potassium Chloride Solution) 20 meq PO TID [facility] Saliva Substitute (Samy-Stir Oral [place]) 1 ml MUCMEM ASDIRECTED PRN PRN Reason: Dry Mouth Last Admin: 05/01/19 19:28 Dose: 2 spray Sodium Chloride (Saline Flush) 10 ml FLUSH ASDIRECTED PRN PRN Reason: Keep Vein Open Last Admin: 05/02/19 05:53 Dose: 10 ml Discontinued Medications Hydromorphone HCl (Dilaudid) 1 mg IVPUSH ONETIME ONE Stop: 04/30/19 18:02 Last Admin: 04/30/19 18:20 Dose: 1 mg Hydromorphone HCl (Dilaudid) 1 mg IVPUSH ONETIME ONE Stop: 04/30/19 19:56 Last Admin: 04/30/19 20:46 Dose: 1 mg Sodium Chloride (Normal Saline) 1,000 mls @ 500 mls/hr IV .BOLUS ONE Stop: 04/30/19 20:23 Last Admin: 04/30/19 18:44 Dose: 500 mls/hr Sodium Chloride (Normal Saline) 1,000 mls @ 250 mls/hr IV .BOLUS ONE Stop: 05/01/19 00:05 Last Admin: 04/30/19 21:06 Dose: 250 mls/hr Sodium Chloride (Normal Saline) 1,000 mls @ 125 mls/hr IV ASDIRECTED [facility] Last Admin: 05/01/19 09:42 Dose: 125 mls/hr Iopamidol (Isovue-370 (76%)) 100 ml IVPUSH ONETIME ONE Stop: 04/30/19 19:14 Last Admin: 04/30/19 19:48 Dose: 100 ml Ondansetron HCl (Zofran) 4 mg IVPUSH ONETIME ONE Stop: 04/30/19 18:03 Last Admin: 04/30/19 18:18 Dose: 4 mg Ondansetron HCl (Zofran) 4 mg IVPUSH Q6H PRN PRN Reason: Nausea/Vomiting Last Admin: 05/01/19 03:41 Dose: 4 mg - Exam General: Alert, Oriented Lungs: Clear to Auscultation, Normal Respiratory Effort Cardiovascular: Regular Rate, Regular Rhythm GI/Abdominal Exam: Normal Bowel Sounds, Soft, No Distention, No Mass, Tender ( Diffuse mild tenderness, improved from yesterday.) - Problem List & Annotations (1) Pancreatitis SNOMED Code(s): 85567787 Code(s): K85.90 - ACUTE PANCREATITIS WITHOUT NECROSIS OR INFECTION, UNSP Status: Acute Priority: High Current Visit: Yes Qualifiers: Chronicity: acute Pancreatitis type: unspecified pancreatitis type Acute pancreatitis complication: no infection or necrosis Qualified Code(s): K85.90 - Acute pancreatitis without necrosis or infection, unspecified Annotation/Comment:: Acute pancreatitis. Patient does have chronic elevation of lipase/amylase per self report. Also usually has mildly elevated AST and ALT. CT did not indicate abscess or necrosis. Will admit observation, place patient NPO, and give pain and fluid support. Patient reports that she usually improves within several days when pancreatitis flairs. (2) Ileostomy in place SNOMED Code(s): 127265422 Code(s): Z93.2 - ILEOSTOMY STATUS Status: Chronic Priority: Low Current Visit: No Annotation/Comment:: No acute concerns at this time (3) Hypokalemia SNOMED Code(s): 01812559 Code(s): E87.6 - HYPOKALEMIA Status: Acute Priority: Medium Current Visit: Yes (4) Hypomagnesemia SNOMED Code(s): 789569811 Code(s): E83.42 - HYPOMAGNESEMIA Status: Acute Current Visit: Yes - Problem List Review Problem List Initiated/Reviewed/Updated: Yes - My Orders Last 24 Hours: My Active Orders 05/01/19 10:09 Patient Status [ADT] Routine 05/01/19 10:30 Carboxymethylcellulose/Lytes [Samy-Stir Oral [place]] 1 ml MUCMEM ASDIRECTED PRN 05/01/19 17:43 Sodium Chloride 0.9% [Normal Saline] 1,000 ml IV ASDIRECTED 05/01/19 23:08 Acetaminophen [Tylenol] 650 mg PO Q4H PRN 05/01/19 23:29 Nicotine [Habitrol] 21 mg TRDERM DAILY 05/02/19 00:05 Implanted Port Access [RC] .prn Implanted Port De-Access [RC] .prn 05/02/19 00:06 Heparin Sodium [Heparin Lock Flush 100 Units/ML] 500 units FLUSH ASDIRECTED PRN 05/02/19 09:45 Sodium Chloride 0.9% with KCl 20 mEq @ 75 mL/Hr (1000 mL) NS + KCl 20mEq/L [ Normal Saline with 20 mEq KCl] 1,000 ml IV ASDIRECTED 05/02/19 12:00 Potassium Chloride [Potassium Chloride Solution] 20 meq PO TID 05/02/19 Lunch Clear Liquid Diet [DIET] - Assessment Assessment:: Pancreatitis Hypokalemia. - Plan Plan:: Continue IV fluids . Add 20 meq KCl to the fluids.\ Kcl 20 meq PO TID Magnesium supplementation twice daily. Clear liquid diet. Recheck CMP, Amylase and Lipase in the morning.
[2019-05-02] MEDS: NS + KCl 20mEq/L 1,000 ML IV SCH ×2 (10:45→23:57)
[2019-05-02] MEDS: Potassium Chloride 10 MEQ Tab.ER PO SCH ×2 (11:01→17:19)
[2019-05-02] MEDS: Magnesium Oxide 400 MG Tab PO SCH ×2 (11:01→17:19)
[2019-05-03] MEDS: fentaNYL 100 MCG/2 ML SDV IVPUSH PRN (01:05)
[2019-05-03] MEDS: Ondansetron 4 MG/2 ML SDV IVPUSH PRN ×5 (01:05→23:59)
[2019-05-03] MEDS: Acetaminophen 325 MG Tab PO PRN ×5 (03:10→20:02)
[2019-05-03] MEDS: Potassium Chloride 10 MEQ Tab.ER PO SCH ×3 (07:34→17:25)
[2019-05-03] MEDS: Magnesium Oxide 400 MG Tab PO SCH ×2 (07:34→17:26)
[2019-05-03] MEDS: Nicotine 21 MG/24 Hr Patch TRDERM SCH (07:35)
[2019-05-03] MEDS: Sodium Chloride 0.9% 10 ML Syringe FLUSH PRN ×6 (07:35→23:59)
[2019-05-03 08:30] LABS: CHLORIDE,CL 106 mmol/L (98-107); SODIUM,NA 140 mmol/L (136-145)
--- NOTE | 2019-05-03 09:21 | PCM.PN ---
- General Info Date of Service: 05/03/19 Admission Dx/Problem (Free Text): Pancreatitis Subjective Update: Feeling better. Still complaining of abdominal pain, 01/19. Tolerated clear liquid diet without problems. C/o headache from Dilaudid and fentanyl. Headache is improved this morning. No chest pain or tightness. No shortness of breath. - Patient Data Vitals - Most Recent: Last Vital Signs Temp 35.4 C 05/03/19 06:00 Pulse 58 L 05/03/19 06:00 Resp 14 05/03/19 06:00 BP 129/60 05/03/19 06:00 Pulse Ox 96 05/03/19 00:00 Weight - Most Recent: 78.245 kg I&O - Last 24 Hours: Intake & Output 05/02/19 05/03/19 05/03/19 22:59 06:59 14:59 Intake Total 1979 1165 280 Output Total 300 100 Balance 1679 1065 280 Lab Results Last 24 Hours: Laboratory Results - last 24 hr 05/03/19 05/03/19 Range/Units 07:45 07:45 WBC 8.6 (4.0-10.2) K/uL RBC 3.40 L (3.77-5.09) M/uL Hgb 11.4 L (11.7-15.5) g/dL Hct 33.7 L (34.0-46.0) % MCV 99.1 H (84.0-98.0) fL MCH 33.5 H (28.2-33.3) pg MCHC 33.8 (31.7-36.0) g/dL RDW 13.4 (11.2-14.1) % Plt Count 121 L (150-350) K/uL Neut % (Auto) 57.9 (45.0-80.0) % Lymph % (Auto) 27.9 (10.0-50.0) % [place] % (Auto) 11.6 (2.0-14.0) % Eos % (Auto) 2.3 (0.0-5.0) % Baso % (Auto) 0.3 (0.0-2.0) % Neut # (Auto) 4.98 (1.40-7.00) K/uL Lymph # (Auto) 2.40 (0.50-3.50) K/uL [place] # (Auto) 1.00 (0.00-1.00) K/uL Eos # (Auto) 0.20 (0.00-0.50) K/uL Baso # (Auto) 0.03 (0.00-0.20) K/uL Sodium 140 (136-145) mmol/L Potassium 3.3 L (3.5-5.1) mmol/L Chloride 106 (98-107) mmol/L Carbon Dioxide 30.6 (21.0-32.0) mmol/L BUN 6 L (7-18) mg/dL Creatinine 0.61 (0.51-1.17) mg/dL Est Cr Clr Drug Dosing 92.31 mL/min Estimated GFR (MDRD) > 60 mL/min Glucose 88 (74-106) mg/dL Calcium 8.3 L (8.5-10.1) mg/dL Total Bilirubin 0.5 (0.2-1.0) mg/dL AST 17 (15-37) U/L ALT 36 (12-78) U/L Alkaline Phosphatase 72 (46-116) IU/L Total Protein 5.4 L (6.4-8.2) g/dL Albumin 2.2 L (3.4-5.0) g/dL Amylase 189 H (25-115) U/L Lipase 897 H (73-393) U/L Med Orders - Current: Current Medications Acetaminophen (Tylenol) 650 mg PO Q4H PRN PRN Reason: Pain/Fever Last Admin: 05/03/19 07:33 Dose: 650 mg Fentanyl (Sublimaze) 50 mcg IVPUSH Q2HR PRN PRN Reason: Pain (severe 7-10) Last Admin: 05/03/19 01:05 Dose: 50 mcg Heparin Sodium (Porcine) (Heparin Lock Flush 100 Units/Ml) 500 units FLUSH ASDIRECTED PRN PRN Reason: port flush Last Admin: 05/03/19 07:36 Dose: 500 units Hydromorphone HCl (Dilaudid) 0.5 mg IVPUSH Q2H PRN PRN Reason: Pain (moderate 4-6) Last Admin: 05/02/19 23:57 Dose: 0.5 mg Potassium Chloride/Sodium Chloride (Normal Saline With 20 Meq Kcl) 1,000 mls @ 75 mls/hr IV ASDIRECTED [facility] Last Admin: 05/02/19 23:57 Dose: 75 mls/hr Magnesium Oxide (Magnesium Oxide) 400 mg PO BID [facility] Last Admin: 05/03/19 07:34 Dose: 400 mg Nicotine (Habitrol) 21 mg TRDERM DAILY [facility] Last Admin: 05/03/19 07:35 Dose: Not Given Ondansetron HCl (Zofran) 4 mg IVPUSH Q4HR PRN PRN Reason: Nausea/Vomiting Last Admin: 05/03/19 07:32 Dose: 4 mg Potassium Chloride (Klor-Con 10) 20 meq PO TID [facility] Last Admin: 05/03/19 07:34 Dose: 20 meq Saliva Substitute (Samy-Stir Oral [place]) 1 ml MUCMEM ASDIRECTED PRN PRN Reason: Dry Mouth Last Admin: 05/01/19 19:28 Dose: 2 spray Sodium Chloride (Saline Flush) 10 ml FLUSH ASDIRECTED PRN PRN Reason: Keep Vein Open Last Admin: 05/03/19 07:35 Dose: 10 ml Discontinued Medications Hydromorphone HCl (Dilaudid) 1 mg IVPUSH ONETIME ONE Stop: 04/30/19 18:02 Last Admin: 04/30/19 18:20 Dose: 1 mg Hydromorphone HCl (Dilaudid) 1 mg IVPUSH ONETIME ONE Stop: 04/30/19 19:56 Last Admin: 04/30/19 20:46 Dose: 1 mg Sodium Chloride (Normal Saline) 1,000 mls @ 500 mls/hr IV .BOLUS ONE Stop: 04/30/19 20:23 Last Admin: 04/30/19 18:44 Dose: 500 mls/hr Sodium Chloride (Normal Saline) 1,000 mls @ 250 mls/hr IV .BOLUS ONE Stop: 05/01/19 00:05 Last Admin: 04/30/19 21:06 Dose: 250 mls/hr Sodium Chloride (Normal Saline) 1,000 mls @ 125 mls/hr IV ASDIRECTED [facility] Last Admin: 05/01/19 09:42 Dose: 125 mls/hr Sodium Chloride (Normal Saline) 1,000 mls @ 75 mls/hr IV ASDIRECTED [facility] Last Admin: 05/02/19 07:19 Dose: 75 mls/hr Iopamidol (Isovue-370 (76%)) 100 ml IVPUSH ONETIME ONE Stop: 04/30/19 19:14 Last Admin: 04/30/19 19:48 Dose: 100 ml Ondansetron HCl (Zofran) 4 mg IVPUSH ONETIME ONE Stop: 04/30/19 18:03 Last Admin: 04/30/19 18:18 Dose: 4 mg Ondansetron HCl (Zofran) 4 mg IVPUSH Q6H PRN PRN Reason: Nausea/Vomiting Last Admin: 05/01/19 03:41 Dose: 4 mg - Exam General: Alert, Oriented Lungs: Clear to Auscultation, Normal Respiratory Effort Cardiovascular: Regular Rate, Regular Rhythm, No Murmurs GI/Abdominal Exam: Normal Bowel Sounds, Soft, No Distention, No Mass, Tender ( Mild diffuse tenderness minimally improved from yesterday.) - Problem List & Annotations (1) Pancreatitis SNOMED Code(s): 14001273 Code(s): K85.90 - ACUTE PANCREATITIS WITHOUT NECROSIS OR INFECTION, UNSP Status: Acute Priority: High Current Visit: Yes Qualifiers: Chronicity: acute Pancreatitis type: unspecified pancreatitis type Acute pancreatitis complication: no infection or necrosis Qualified Code(s): K85.90 - Acute pancreatitis without necrosis or infection, unspecified Annotation/Comment:: Acute pancreatitis. Patient does have chronic elevation of lipase/amylase per self report. Also usually has mildly elevated AST and ALT. CT did not indicate abscess or necrosis. Will admit observation, place patient NPO, and give pain and fluid support. Patient reports that she usually improves within several days when pancreatitis flairs. (2) Ileostomy in place SNOMED Code(s): 006570612 Code(s): Z93.2 - ILEOSTOMY STATUS Status: Chronic Priority: Low Current Visit: No Annotation/Comment:: No acute concerns at this time (3) Hypokalemia SNOMED Code(s): 33426362 Code(s): E87.6 - HYPOKALEMIA Status: Acute Priority: Medium Current Visit: Yes (4) Hypomagnesemia SNOMED Code(s): 222016877 Code(s): E83.42 - HYPOMAGNESEMIA Status: Acute Current Visit: Yes - Problem List Review Problem List Initiated/Reviewed/Updated: Yes - My Orders Last 24 Hours: My Active Orders 05/02/19 09:45 NS + KCl 20mEq/L [Normal Saline with 20 mEq KCl] 1,000 ml IV ASDIRECTED 05/02/19 12:00 Magnesium Oxide 400 mg PO BID Potassium Chloride [Klor-Con 10] 20 meq PO TID 05/02/19 Lunch Clear Liquid Diet [DIET] - Assessment Assessment:: Pancreatitis Hypokalemia. Hypomagnesemia. - Plan Plan:: Continue IV fluids . Advance diet as tolerated. Possible DC to home tomorrow.
[2019-05-03] MEDS: NS + KCl 20mEq/L 1,000 ML IV SCH (14:08)
[2019-05-03] MEDS: HYDROmorphone 0.5 MG/0.5 ML Syringe IVPUSH PRN ×2 (15:25→22:06)
[2019-05-03] MEDS: Simethicone 125 MG Tab.Chew PO PRN ×2 (16:00→21:09)
[2019-05-04] MEDS: HYDROmorphone 0.5 MG/0.5 ML Syringe IVPUSH PRN ×3 (01:16→11:04)
[2019-05-04] MEDS: Sodium Chloride 0.9% 10 ML Syringe FLUSH PRN ×4 (01:17→13:41)
[2019-05-04] MEDS: Acetaminophen 325 MG Tab PO PRN (04:05)
[2019-05-04] MEDS: NS + KCl 20mEq/L 1,000 ML IV SCH (04:05)
[2019-05-04] MEDS: Potassium Chloride 10 MEQ Tab.ER PO SCH ×2 (07:56→12:35)
[2019-05-04] MEDS: Ondansetron 4 MG/2 ML SDV IVPUSH PRN ×2 (07:56→12:33)
[2019-05-04] MEDS: Magnesium Oxide 400 MG Tab PO SCH (07:56)
[2019-05-04] MEDS: Nicotine 21 MG/24 Hr Patch TRDERM SCH (08:05)
[2019-05-04] MEDS: Simethicone 125 MG Tab.Chew PO PRN (08:13)
[2019-05-04 08:19] LABS: SODIUM,NA 140 mmol/L (136-145)
[2019-05-04 10:35] LABS: CHLORIDE,CL 104 mmol/L (98-107)
[2019-05-04] MEDS ORDERED: Calcium Gluconate 1 GM in Sodium Chloride 0.9% 100 ML IV ONE (12:00)
--- NOTE | 2019-05-04 12:11 | PCM.DCSUM1 ---
Discharge Summary - Hospital Course Brief History: Patient admitted for treatment of pancreatitis - Discharge Data Discharge Date: 05/04/19 Discharge Disposition: Home, Self-Care 01 Condition: Good - Discharge Diagnosis/Problem(s) (1) Pancreatitis SNOMED Code(s): 07231660 ICD Code: K85.90 - ACUTE PANCREATITIS WITHOUT NECROSIS OR INFECTION, UNSP Status: Acute Priority: High Current Visit: Yes Problem Details: Acute pancreatitis. Much improved. Tolerating food. Patient does have chronic elevation of lipase/amylase per self report. Also usually has mildly elevated AST and ALT. CT did not indicate abscess or necrosis. Admitted observation, placed NPO, and given pain and fluid support. Patient reports that she usually improves within several days when pancreatitis flairs. Qualifiers: Chronicity: acute Pancreatitis type: unspecified pancreatitis type Acute pancreatitis complication: no infection or necrosis Qualified Code(s): K85.90 - Acute pancreatitis without necrosis or infection, unspecified (2) Ileostomy in place SNOMED Code(s): 837463827 ICD Code: Z93.2 - ILEOSTOMY STATUS Status: Chronic Priority: Low Current Visit: No Problem Details: No acute concerns at this time (3) RESIDENTIAL (familial polyposis coli) SNOMED Code(s): 73874966 ICD Code: D12.6 - BENIGN NEOPLASM OF COLON, UNSPECIFIED Status: Chronic Priority: Low Current Visit: No Problem Details: History of RESIDENTIAL. Prophylactic removal of colon. (4) Hypokalemia SNOMED Code(s): 77861386 ICD Code: E87.6 - HYPOKALEMIA Status: Acute Priority: Medium Current Visit: Yes Problem Details: Normal level at this time. To get rechecked within 1-2 weeks. May need supplemental K if gets low again. (5) Hypomagnesemia SNOMED Code(s): 121517974 ICD Code: E83.42 - HYPOMAGNESEMIA Status: Chronic Priority: Medium Current Visit: Yes Problem Details: Continue supplemental magnesium. Get level rechecked within the next few weeks by primary provider - Patient Summary/Data Hospital Course: Patient slowly improved over course of stay. Able to tolerate food today. No fevers. Received Magnesium to help with Mag deficiency. Labs improved as did patient's level of energy. Discharged home once able to perform ADLs in addition to being able to take adequate PO fluids/food. - Patient Instructions Diet: Usual Diet as Tolerated Activity: As Tolerated Driving: Do Not Drive Showering/Bathing: May Shower Notify Provider of: Fever, Increased Pain, Swelling and Redness Other/Special Instructions: Get your Magnesium and Potassium reched within 7-14 days! Follow up as needed if symptoms return. - Discharge Plan *PRESCRIPTION DRUG MONITORING PROGRAM REVIEWED*: Not Applicable *COPY OF PRESCRIPTION DRUG MONITORING REPORT IN PATIENT DANGELO: Not Applicable Home Medications: Home Meds Acetaminophen [Tylenol] 650 mg PO Q6HR PRN 04/30/19 [History] Cyclobenzaprine [Flexeril] 10 mg PO TID PRN 04/30/19 [History] Ibuprofen 400 mg PO Q6HR PRN 04/30/19 [History] Patient Handouts: Hypokalemia, Hypomagnesemia Forms: ED Department Discharge Referrals: Lissette Baird [employer] [Primary Care Provider] - - Discharge Summary/Plan Comment DC Time >30 min.: No - General Info Date of Service: 05/04/19 Admission Dx/Problem (Free Text: Pancreatitis Subjective Update: Feeling better. Mild abdominal discomfort at times. Would like to go home. Functional Status: Reports: Pain Controlled, Tolerating Diet, Ambulating, Urinating. Denies: New Symptoms - Review of Systems General: Reports: Fatigue, Appetite (still decreased). Denies: Fever, Chills, Night Sweats HEENT: Reports: Glasses Pulmonary: Denies: Shortness of Breath, Pleuritic Chest Pain, Cough, Sputum, Wheezing Cardiovascular: Denies: Chest Pain, Dyspnea on Exertion, Lightheadedness Gastrointestinal: Reports: Abdominal Pain (mild discomfort), Decreased Appetite. Denies: Constipation, Diarrhea, Difficulty Swallowing, Hematochezia, Nausea, Vomiting Genitourinary: Reports: No Symptoms Musculoskeletal: Reports: No Symptoms (no changes from baseline) Neurological: Reports: No Symptoms Psychiatric: Reports: No Symptoms - Patient Data Vitals - Most Recent: Last Vital Signs Temp 36.3 C 05/04/19 08:00 Pulse 54 L 05/04/19 08:00 Resp 16 05/04/19 08:00 BP 142/73 H 05/04/19 08:00 Pulse Ox 97 05/04/19 08:00 Weight - Most Recent: 78.245 kg I&O - Last 24 hours: Intake & Output 05/03/19 05/04/19 05/04/19 22:59 06:59 14:59 Intake Total 1525 936 Output Total 600 200 Balance 925 736 Lab Results - Last 24 hrs: Laboratory Results - last 24 hr 05/04/19 05/04/19 05/04/19 Range/Units 07:51 07:51 10:58 WBC 7.2 (4.0-10.2) K/uL RBC 3.54 L (3.77-5.09) M/uL Hgb 11.6 L (11.7-15.5) g/dL Hct 34.6 (34.0-46.0) % MCV 97.7 (84.0-98.0) fL MCH 32.8 (28.2-33.3) pg MCHC 33.5 (31.7-36.0) g/dL RDW 12.9 (11.2-14.1) % Plt Count 162 (150-350) K/uL Neut % (Auto) 52.3 (45.0-80.0) % Lymph % (Auto) 31.8 (10.0-50.0) % [place] % (Auto) 11.7 (2.0-14.0) % Eos % (Auto) 3.6 (0.0-5.0) % Baso % (Auto) 0.6 (0.0-2.0) % Neut # (Auto) 3.76 (1.40-7.00) K/uL Lymph # (Auto) 2.29 (0.50-3.50) K/uL [place] # (Auto) 0.84 (0.00-1.00) K/uL Eos # (Auto) 0.26 (0.00-0.50) K/uL Baso # (Auto) 0.04 (0.00-0.20) K/uL Sodium 140 (136-145) mmol/L Potassium 3.7 (3.5-5.1) mmol/L Chloride 104 (98-107) mmol/L Carbon Dioxide 30.9 (21.0-32.0) mmol/L BUN 6 L (7-18) mg/dL Creatinine 0.70 (0.51-1.17) mg/dL Est Cr Clr Drug Dosing 80.44 mL/min Estimated GFR (MDRD) > 60 mL/min Glucose 100 (74-106) mg/dL Calcium 4.5 L* D 8.5 D (8.5-10.1) mg/dL Magnesium 1.7 L (1.8-2.4) mg/dL Total Bilirubin 0.3 (0.2-1.0) mg/dL AST 24 (15-37) U/L ALT 39 (12-78) U/L Alkaline Phosphatase 85 (46-116) IU/L Total Protein 5.7 L (6.4-8.2) g/dL Albumin 2.4 L (3.4-5.0) g/dL Amylase 118 H (25-115) U/L Lipase 637 H (73-393) U/L Med Orders - Current: Current Medications Acetaminophen (Tylenol) 650 mg PO Q4H PRN PRN Reason: Pain/Fever Last Admin: 05/04/19 04:05 Dose: 650 mg Fentanyl (Sublimaze) 50 mcg IVPUSH Q2HR PRN PRN Reason: Pain (severe 7-10) Last Admin: 05/03/19 01:05 Dose: 50 mcg Heparin Sodium (Porcine) (Heparin Lock Flush 100 Units/Ml) 500 units FLUSH ASDIRECTED PRN PRN Reason: port flush Last Admin: 05/03/19 07:36 Dose: 500 units Hydromorphone HCl (Dilaudid) 0.5 mg IVPUSH Q2H PRN PRN Reason: Pain (moderate 4-6) Last Admin: 05/04/19 11:04 Dose: 0.5 mg Potassium Chloride/Sodium Chloride (Normal Saline With 20 Meq Kcl) 1,000 mls @ 75 mls/hr IV ASDIRECTED [facility] Last Admin: 05/04/19 04:05 Dose: 75 mls/hr Magnesium Oxide (Magnesium Oxide) 400 mg PO BID [facility] Last Admin: 05/04/19 07:56 Dose: 400 mg Nicotine (Habitrol) 21 mg TRDERM DAILY [facility] Last Admin: 05/04/19 08:05 Dose: Not Given Ondansetron HCl (Zofran) 4 mg IVPUSH Q4HR PRN PRN Reason: Nausea/Vomiting Last Admin: 05/04/19 07:56 Dose: 4 mg Potassium Chloride (Klor-Con 10) 20 meq PO TID [facility] Last Admin: 05/04/19 07:56 Dose: 20 meq Saliva Substitute (Samy-Stir Oral [place]) 1 ml MUCMEM ASDIRECTED PRN PRN Reason: Dry Mouth Last Admin: 05/01/19 19:28 Dose: 2 spray Simethicone (Simethicone) 125 mg PO Q6HR PRN PRN Reason: Abdominal Pain Last Admin: 05/04/19 08:13 Dose: 125 mg Sodium Chloride (Saline Flush) 10 ml FLUSH ASDIRECTED PRN PRN Reason: Keep Vein Open Last Admin: 05/04/19 11:05 Dose: 10 ml Discontinued Medications Hydromorphone HCl (Dilaudid) 1 mg IVPUSH ONETIME ONE Stop: 04/30/19 18:02 Last Admin: 04/30/19 18:20 Dose: 1 mg Hydromorphone HCl (Dilaudid) 1 mg IVPUSH ONETIME ONE Stop: 04/30/19 19:56 Last Admin: 04/30/19 20:46 Dose: 1 mg Sodium Chloride (Normal Saline) 1,000 mls @ 500 mls/hr IV .BOLUS ONE Stop: 04/30/19 20:23 Last Admin: 04/30/19 18:44 Dose: 500 mls/hr Sodium Chloride (Normal Saline) 1,000 mls @ 250 mls/hr IV .BOLUS ONE Stop: 05/01/19 00:05 Last Admin: 04/30/19 21:06 Dose: 250 mls/hr Sodium Chloride (Normal Saline) 1,000 mls @ 125 mls/hr IV ASDIRECTED [facility] Last Admin: 05/01/19 09:42 Dose: 125 mls/hr Sodium Chloride (Normal Saline) 1,000 mls @ 75 mls/hr IV ASDIRECTED [facility] Last Admin: 05/02/19 07:19 Dose: 75 mls/hr Magnesium Sulfate/Dextrose 1 (gm/ Premix) 100 mls @ 100 mls/hr IV ONETIME ONE Stop: 05/04/19 11:58 Calcium Gluconate 1 gm/ Sodium (Chloride) 110 mls @ 100 mls/hr IV ONETIME ONE Stop: 05/04/19 13:05 Iopamidol (Isovue-370 (76%)) 100 ml IVPUSH ONETIME ONE Stop: 04/30/19 19:14 Last Admin: 04/30/19 19:48 Dose: 100 ml Ondansetron HCl (Zofran) 4 mg IVPUSH ONETIME ONE Stop: 04/30/19 18:03 Last Admin: 04/30/19 18:18 Dose: 4 mg Ondansetron HCl (Zofran) 4 mg IVPUSH Q6H PRN PRN Reason: Nausea/Vomiting Last Admin: 05/01/19 03:41 Dose: 4 mg - Exam General: Reports: Alert, Oriented, Cooperative HEENT: Reports: Pupils Equal, Pupils Reactive, EOMI, Mucous Membr. Moist/[place] Neck: Reports: Supple, Thyromegaly Lungs: Reports: Normal Respiratory Effort Cardiovascular: Reports: Regular Rhythm, Bradycardia GI/Abdominal Exam: Soft, Non-Tender, No Distention, Abnormal Bowel Sounds ( Somewhat diminished throughout). No: Distended (Female) Exam: Deferred Rectal (Female) Exam: Deferred Extremities: Normal Inspection, Non-Tender. No: Normal Capillary Refill Skin: Reports: Warm, Dry Neurological: Reports: No New Focal Deficit Psy/Mental Status: Reports: Alert, Normal Affect, Normal Mood
== END 2019-05-04 13:45 | disposition home or self-care (01) | DRG 440 ==
LOC: LL.ED 17:52 → UNDOADMOB 21:20 → LL.ED 21:20 → LL.MS 21:20 → OBSVTOIN 05-01 09:57 → LL.MS 05-01 09:57 → INTOOBSV 05-01 09:57
PROVIDERS: ADMIT Emergency Medicine; ATTEND Family Medicine
DX: K85.90 Acute pancreatitis without necrosis or infection, unspecified (principal); E87.6 Hypokalemia; D12.6 Benign neoplasm of colon, unspecified; E83.42 Hypomagnesemia; E66.9 Obesity, unspecified; H54.7 Unspecified visual loss; F17.200 Nicotine dependence, unspecified, uncomplicated; F41.9 Anxiety disorder, unspecified; F32.9 Major depressive disorder, single episode, unspecified; G43.909 Migraine, unspecified, not intractable, without status migrainosus; Z93.3 Colostomy status; Z68.27 Body mass index [BMI] 27.0-27.9, adult; Z79.899 Other long term (current) drug therapy; Z90.49 Acquired absence of other specified parts of digestive tract; Z93.2 Ileostomy status; Z90.710 Acquired absence of both cervix and uterus; Z88.5 Allergy status to narcotic agent
CPT/HCPCS: 36415; 74019; 74178; 80053; 81001; 82150; 82310; 83690; 83735; 85025; 94761; 96361; 96374; 96375; 96376; 99285-25; A9270-GY; G0378; J1170; J1642; J2405; J3010; J3475; J3480; J7030; Q9967

== ENCOUNTER 2019-09-02 01:50 | Emergency (ER) | payer OTHER ==
[2019-09-02] MEDS: Sodium Chloride 0.9% 1,000 ML IV ONE ×2 (02:34→03:19)
[2019-09-02] MEDS: Ondansetron 4 MG/2 ML SDV IVPUSH ONE (02:34)
[2019-09-02] MEDS ORDERED: Heparin Sodium 10 Units/ML 5 ML Syringe FLUSH ONE (02:38)
[2019-09-02 02:41] LABS: CHLORIDE,CL 106 mmol/L (98-107); SODIUM,NA 143 mmol/L (136-145)
--- NOTE | 2019-09-02 02:51 | EDM.PDOC ---
ED HPI GENERAL MEDICAL PROBLEM - General Chief Complaint: General Stated Complaint: Nausea vomiting Time Seen by Provider: 09/02/19 02:26 Source of Information: Reports: Patient History Limitations: Reports: No Limitations - History of Present Illness INITIAL COMMENTS - FREE TEXT/NARRATIVE: Patient comes in due to nausea/emesis/increased ileostomy output (diarrhea). History of chronic elevation amylase/lipase. Historically gets dehydrated quickly when she gets GI illnesses. No fevers. Nausea started yesterday. This was followed by increased output of stool. Emesis began a few hours ago. Denies HEENT changes/ST/OROSCO/ear pain Denies Resp changes/SOB/cough Denies changes/UTI complaints/hematuria Denies chest pain/palpitations Denies Neuro changes Did take Imodium once around 6 hours ago. Neck Pain Score (Numeric/FACES): 10 - Related Data Allergies Allergy/AdvReac Type Severity Reaction Status Date / Time morphine Allergy Itching Verified 09/02/19 01:54 Home Meds: Home Meds Acetaminophen [Tylenol] 650 mg PO Q6HR PRN 04/30/19 [History] Cyclobenzaprine [Flexeril] 10 mg PO TID PRN 04/30/19 [History] Ibuprofen 400 mg PO Q6HR PRN 04/30/19 [History] Past Medical History HEENT History: Reports: Cataract, Impaired Vision Gastrointestinal History: Reports: Colon Polyp, Pancreatitis, Other (See Below) (Familial Polyposis Coli) Musculoskeletal History: Reports: Fracture Neurological History: Reports: Migraines, Vertigo Psychiatric History: Reports: Anxiety, Depression Endocrine/Metabolic History: Reports: Other (See Below) Other Endocrine/Metabolic History: 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, - Infectious Disease History Infectious Disease History: Reports: Chicken Pox, Measles, Mumps - Past Surgical History HEENT Surgical History: Reports: Oral Surgery GI Surgical History: Reports: Cholecystectomy, Colostomy, Other (See Below) Other GI Surgeries/Procedures: Stents, scar tissue surgery Female Surgical History: Reports: Hysterectomy Social & Family History - Family History Cardiac: Reports: Afib, Hypertension, [place] Respiratory: Reports: Asthma, COPD GI: Reports: Cirrhosis, Hepatitis : Reports: Renal Disease/Insufficiency Neurological: Reports: Alzheimers Disease Endocrine/Metabolic: Reports: Diabetes, type II Oncologic: Reports: Colon - Caffeine Use Caffeine Use: Reports: Coffee ED ROS GENERAL - Review of Systems Review Of Systems: Comprehensive ROS is negative, except as noted in HPI. ED EXAM, GENERAL - Physical Exam Exam: See Below Exam Limited By: No Limitations General Appearance: Alert, WD/WN, No Apparent Distress Nose: No: Nasal Deformity, Nasal Swelling, Nasal Drainage Throat/Mouth: Normal Lips, Normal Voice, No Airway Compromise Head: Atraumatic, Normocephalic Neck: Normal Inspection, Supple, Non-Tender, Full Range of Motion Respiratory/Chest: No Respiratory Distress, Lungs Clear, Normal Breath Sounds, No Accessory Muscle Use Cardiovascular: Normal Peripheral Pulses, Regular Rate, Rhythm, No Edema, No Murmur GI/Abdominal: Normal Bowel Sounds, Soft, Non-Tender, Tender (mild tenderness left abdomen). No: Guarding, Rigid, Rebound (Female) Exam: Deferred Rectal (Female) Exam: Deferred Back Exam: No: Muscle Spasm Extremities: Normal Inspection, Normal Capillary Refill Neurological: Alert, Oriented, Normal Cognition Psychiatric: Normal Affect, Normal Mood Skin Exam: Warm, Dry, Intact, Normal Color Course - Vital Signs Last Recorded V/S: Last Vital Signs Temp 36.8 C 09/02/19 01:57 Pulse 79 09/02/19 01:57 Resp 15 09/02/19 01:57 BP 164/90 H 09/02/19 01:57 Pulse Ox 100 09/02/19 01:57 - Orders/Labs/Meds Orders: Active Orders 24 hr Category Date Time Status Implanted Port Access [RC] ASDIRECTED Care 09/02/19 02:04 Active Labs: Laboratory Tests 09/02/19 09/02/19 09/02/19 Range/Units 02:20 02:20 02:20 WBC 6.5 (4.0-10.2) K/uL RBC 4.40 (3.77-5.09) M/uL Hgb 13.8 D (11.7-15.5) g/dL Hct 42.2 (34.0-46.0) % MCV 95.9 (84.0-98.0) fL MCH 31.4 (28.2-33.3) pg MCHC 32.7 (31.7-36.0) g/dL RDW 13.3 (11.2-14.1) % Plt Count 154 (150-350) K/uL Neut % (Auto) 38.4 L (45.0-80.0) % Lymph % (Auto) 46.9 (10.0-50.0) % [place] % (Auto) 8.9 (2.0-14.0) % Eos % (Auto) 4.9 (0.0-5.0) % Baso % (Auto) 0.9 (0.0-2.0) % Neut # (Auto) 2.50 (1.40-7.00) K/uL Lymph # (Auto) 3.05 (0.50-3.50) K/uL [place] # (Auto) 0.58 (0.00-1.00) K/uL Eos # (Auto) 0.32 (0.00-0.50) K/uL Baso # (Auto) 0.06 (0.00-0.20) K/uL Sodium 143 (136-145) mmol/L Potassium 3.8 (3.5-5.1) mmol/L Chloride 106 (98-107) mmol/L Carbon Dioxide 27.7 (21.0-32.0) mmol/L BUN 14 (7-18) mg/dL Creatinine 0.72 (0.51-1.17) mg/dL Est Cr Clr Drug Dosing TNP Estimated GFR (MDRD) > 60 mL/min Glucose 142 H (74-106) mg/dL Calcium 8.6 (8.5-10.1) mg/dL Magnesium 1.8 (1.8-2.4) mg/dL Total Bilirubin 0.2 (0.2-1.0) mg/dL AST 19 (15-37) U/L ALT 68 (12-78) U/L Alkaline Phosphatase 128 H (46-116) IU/L Total Protein 6.5 (6.4-8.2) g/dL Albumin 3.3 L (3.4-5.0) g/dL Amylase 151 H (25-115) U/L Lipase 1064 H (73-393) U/L Meds: Medications Discontinued Medications Generic Name Dose Route Start Last Admin Trade Name Freq PRN Reason Stop Dose Admin Cyclobenzaprine HCl 10 mg 09/02/19 02:40 09/02/19 02:55 Flexeril PO 09/02/19 02:41 10 mg ONETIME ONE Administration Heparin Sodium (Porcine) 500 units 09/02/19 03:15 09/02/19 03:20 Heparin Lock Flush 100 Units/Ml FLUSH 500 units ASDIRECTED PRN Administration Port Flush Protocol Sodium Chloride 1,000 mls @ 999 mls/hr 09/02/19 02:05 09/02/19 02:34 Normal Saline IV 09/02/19 03:05 999 mls/hr .BOLUS ONE Administration Sodium Chloride 1,000 mls @ 500 mls/hr 09/02/19 03:30 09/02/19 03:19 Normal Saline IV 09/02/19 05:29 500 mls/hr .BOLUS ONE Administration Loperamide HCl 2 mg 09/02/19 02:37 09/02/19 02:55 Imodium Ad PO 09/02/19 02:38 2 mg ONETIME ONE Administration Ondansetron HCl 4 mg 09/02/19 02:06 09/02/19 02:34 Zofran IVPUSH 09/02/19 02:07 4 mg ONETIME ONE Administration Potassium Chloride 20 meq 09/02/19 04:00 09/02/19 03:19 Klor-Con M20 PO 09/02/19 04:01 20 meq ONETIME ONE Administration - Re-Assessments/Exams Free Text/Narrative Re-Assessment/Exam: Patient resting comfortably and is receiving fluid bolus. Non-toxic appearance , in good mood. Zofran/Flexeril ordered. Second liter of NS ordered. WBC is not elevated. Amylase/Lipase increased but patient has history of chronic elevation. Levels are low compared to previous levels noted when patient has required admission in the past from abdominal pain. Abdominal discomfort at this time is minimal. Plan at this time is to give several liters of fluid and let patient go home if she is feeling better. She is to follow up as needed if she has worsening problems. Patient discharged at 5am/feeling improved. Departure - Departure Time of Disposition: 05:00 Disposition: Home, Self-Care 01 Condition: Good Clinical Impression: Gastroenteritis Chronic inflammation of pancreas Qualifiers: Pancreatitis type: unspecified pancreatitis type Qualified Code(s): K86.1 - Other chronic pancreatitis - Discharge Information *PRESCRIPTION DRUG MONITORING PROGRAM REVIEWED*: Not Applicable *COPY OF PRESCRIPTION DRUG MONITORING REPORT IN PATIENT DANGELO: Not Applicable Instructions: Dehydration, Adult, [id number] Referrals: Brie,Lissette D, [employer] [Primary Care Provider] - Forms: ED Department Discharge Additional Instructions: Follow up as needed. Advance diet as tolerated. Sepsis Event Note - Evaluation Sepsis Screening Result: No Definite Risk - Focused Exam Vital Signs: Vital Signs Temp Pulse Resp BP Pulse Ox 09/02/19 01:57 36.8 C 79 15 164/90 H 100 Date Exam was Performed: 09/02/19 Time Exam was Performed: 10:46 - My Orders Last 24 Hours: My Active Orders 09/02/19 02:04 Implanted Port Access [RC] ASDIRECTED - Assessment/Plan Last 24 Hours: My Active Orders 09/02/19 02:04 Implanted Port Access [RC] ASDIRECTED
[2019-09-02] MEDS: Cyclobenzaprine 10 MG Tab PO ONE (02:55)
[2019-09-02] MEDS: Loperamide 2 MG Tab PO ONE (02:55)
[2019-09-02] MEDS: Potassium Chloride 20 MEQ Tab.ER PO ONE (03:19)
== END 2019-09-02 05:40 | disposition home or self-care (01) ==
LOC: LL.ED 01:50
DX: K52.9 Noninfective gastroenteritis and colitis, unspecified (principal); K86.1 Other chronic pancreatitis; Z88.5 Allergy status to narcotic agent
CPT/HCPCS: 36415; 80053; 82150; 83690; 83735; 85025; 96361; 96374; 99284; A9270; J1642; J2405; J7030

== ENCOUNTER 2019-09-08 23:17 | Emergency (ER) | payer OTHER ==
--- NOTE | 2019-09-08 23:54 | EDM.PDOC ---
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 SPECIFIED ANXIETY DISORDERS Status: Chronic Priority: Medium Annotation/Comment:: Moderate control. Continue to observe closely by her regular provider. Consider medical therapy, etc. (8) Osteoarthritis SNOMED Code(s): 777116704 Code(s): M19.90 - UNSPECIFIED OSTEOARTHRITIS, UNSPECIFIED SITE Status: Chronic Priority: Medium Annotation/Comment:: Otherwise stable by history Qualifiers: Osteoarthritis location: multiple joints Osteoarthritis type: primary Qualified Code(s): M15.0 - Primary generalized (osteo)arthritis (9) Tobacco abuse counseling SNOMED Code(s): 711912400, [id number], [id number] Code(s): Z71.6 - TOBACCO ABUSE COUNSELING Status: Chronic Priority: Medium Annotation/Comment:: Tobacco cessation strongly encouraged with tobacco cessation information provided at discharge. (10) Sleep apnea SNOMED Code(s): 37693409 Code(s): G47.30 - SLEEP APNEA, UNSPECIFIED Status: Chronic Priority: Medium Annotation/Comment:: Compliance with her CPAP was strongly encouraged, which was extensively discussed during today's visit, including relationship of her sleep apnea to hypertension, etc. Qualifiers: Sleep apnea type: unspecified type Qualified Code(s): G47.30 - Sleep apnea , unspecified - Problem List Review Problem List Initiated/Reviewed/Updated: Yes - My Orders Last 24 Hours: My Active Orders 09/08/19 23:40 URIC ACID [CHEM] Stat Obtain Past Medical Record [OM.PC] Routine - Assessment/Plan Last 24 Hours: My Active Orders 09/08/19 23:40 URIC ACID [CHEM] Stat Obtain Past Medical Record [OM.PC] Routine Assessment:: As above. Plan: As above. Extensive precautions were given to the patient, who is in agreement with the treatment plan. See Patient Instructions for further treatment and plan.
[2019-09-09 00:15] LABS: CHLORIDE,CL 105 mmol/L (98-107); PTT,PARTIAL THROMBOPLSTIN TIME 21.9 SEC (21.0-31.3); SODIUM,NA 144 mmol/L (136-145)
[2019-09-09] MEDS ORDERED: Potassium Chloride 20 MEQ Tab.ER PO ONE (00:30)
== END 2019-09-09 01:05 | disposition home or self-care (01) ==
LOC: LL.ED 23:17
DX: M54.41 Lumbago with sciatica, right side (principal); K86.1 Other chronic pancreatitis; F17.210 Nicotine dependence, cigarettes, uncomplicated; G47.30 Sleep apnea, unspecified; M15.0 Primary generalized (osteo)arthritis; F41.8 Other specified anxiety disorders; E87.6 Hypokalemia; R94.5 Abnormal results of liver function studies; R79.89 Other specified abnormal findings of blood chemistry; Z88.5 Allergy status to narcotic agent; Z71.6 Tobacco abuse counseling; Z79.899 Other long term (current) drug therapy
CPT/HCPCS: 36415; 80053; 84550; 85025; 85379; 85610; 85730; 99284; A9270

== ENCOUNTER 2020-01-14 09:00 | Inpatient (IN) | payer OTHER ==
[2020-01-14] MEDS ORDERED: LORazepam 1 MG Tab PO ONE (09:45)
[2020-01-14] MEDS ORDERED: Sodium Chloride 0.9% 1,000 ML IV SCH ×2 (09:45→12:00)
[2020-01-14] MEDS ORDERED: Ketorolac 30 MG/ML SDV IVPUSH ONE (09:46)
[2020-01-14] MEDS ORDERED: Ondansetron 4 MG/2 ML SDV IVPUSH ONE (09:46)
[2020-01-14 10:51] LABS: CHLORIDE,CL 105 mmol/L (98-107); SODIUM,NA 141 mmol/L (136-145)
[2020-01-14] MEDS ORDERED: HYDROmorphone 1 MG/ML Syringe IVPUSH ONE (11:40)
[2020-01-14] MEDS: Sodium Chloride 0.9% 10 ML Syringe FLUSH PRN ×2 (12:33→23:58)
[2020-01-14] MEDS ORDERED: Diatrizoate Meglumine/Diatrizoate Sodium 37% 30 ML Bottle PO ONE (13:00)
[2020-01-14] MEDS ORDERED: Iopamidol 612 MG/ML 100 ML Bottle IVPUSH ONE (13:00)
[2020-01-14] MEDS ORDERED: Acetaminophen 650 MG Supp RECTAL PRN (14:29)
[2020-01-14] MEDS ORDERED: Acetaminophen 325 MG Tab PO PRN (14:31)
[2020-01-14 14:57] LABS: PTT,PARTIAL THROMBOPLSTIN TIME 25.2 SEC (24.5-32.8)
[2020-01-14] MEDS ORDERED: Famotidine 20 MG/2 ML SDV IVPUSH SCH (15:00)
[2020-01-14] MEDS ORDERED: Pantoprazole 40 MG Vial IVPUSH SCH (15:00)
[2020-01-14] MEDS: metroNIDAZOLE/Normal Saline 500 MG in Premix Bag 1 BAG IV SCH ×2 (15:41→22:15)
[2020-01-14] MEDS: Ketorolac 15 MG/ML SDV IVPUSH PRN (15:42)
[2020-01-14] MEDS ORDERED: LORazepam 2 MG/ML SDV IVPUSH PRN (17:03)
--- NOTE | 2020-01-14 17:19 | PCM.HP.2 ---
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 Chloride 0.9% [Saline Flush] Med 01/14/20 20:00 Active 10 ml FLUSH Q12HR metroNIDAZOLE/Normal Saline [Flagyl 500 MG in NS 100 ML Med 01/14/20 15:00 Active ] 500 mg Premix Bag 1 bag IV Q8H GM Immunization Reflex [OM.PC] Click To Edit Oth 01/14/20 14:22 Ordered Resuscitation Status Routine Resus Stat 01/14/20 14:26 Ordered Medication Orders Acetaminophen (Tylenol) 650 mg PO Q4H PRN PRN Reason: Pain Acetaminophen (Tylenol) 650 mg RECTAL Q4H PRN PRN Reason: Pain/Fever Clotrimazole (Lotrimin Af 1% Crm) 1 gm TOP BID [facility] Famotidine (Pepcid) 20 mg IVPUSH Q12H [facility] Last Admin: 01/14/20 15:41 Dose: 20 mg Heparin Sodium (Porcine) (Heparin Lock Flush 100 Units/Ml) 500 units FLUSH ASDIRECTED PRN PRN Reason: Keep Vein Open Hydromorphone HCl (Dilaudid) 1 mg IVPUSH Q6H PRN PRN Reason: Pain (severe 7-10) Sodium Chloride (Normal Saline) 1,000 mls @ 125 mls/hr IV ASDIRECTED [facility] Last Admin: 01/14/20 12:28 Dose: 125 mls/hr Potassium Chloride/Dextrose/Sod Cl (D5 1/2 Ns W/ 20 Meq/L Kcl) 1,000 mls @ 75 mls/hr IV ASDIRECTED [facility] Ciprofloxacin/Dextrose 200 mg/ (Premix) 100 mls @ 100 mls/hr IV Q12H [facility] Metronidazole 500 mg/ Premix 100 mls @ 100 mls/hr IV Q8H [facility] Last Admin: 01/14/20 15:41 Dose: 100 mls/hr Ketorolac Tromethamine (Toradol) 15 mg IVPUSH Q6H PRN PRN Reason: Pain (moderate 4-6) Stop: 01/19/20 16:31 Last Admin: 01/14/20 15:42 Dose: 15 mg Lorazepam (Ativan) 1 mg IVPUSH Q6H PRN PRN Reason: Anxiety Ondansetron HCl (Zofran) 4 mg IVPUSH Q6H PRN PRN Reason: Nausea/Vomiting Pantoprazole Sodium (Protonix Iv) 40 mg IVPUSH Q12H [facility] Last Admin: 01/14/20 15:41 Dose: 40 mg Sodium Chloride (Saline Flush) 10 ml FLUSH ASDIRECTED PRN PRN Reason: Keep Vein Open Last Admin: 01/14/20 12:33 Dose: 10 ml Sodium Chloride (Saline Flush) 10 ml FLUSH Q12HR [facility] Assessment/Plan Comment:: As above. Extensive precautions were given to the patient, who is in agreement with the treatment plan. The patient will require about 3-4 days of inpatient/ acute care secondary to multiple health problems as above. MEJIA Vazquez from [facility] in [place] will round on the patient during this hospitalization under supervision of the [facility] physicians. - Mortality Measure Prognosis:: Good
[2020-01-14] MEDS: Enoxaparin 40 MG/0.4 ML Syringe SUBCUT SCH (17:47)
[2020-01-14] MEDS: Ciprofloxacin in D5W 200 MG in Premix Bag 1 BAG IV SCH ×2 (17:48)
[2020-01-14] MEDS: HYDROmorphone 1 MG/ML Syringe IVPUSH PRN (19:42)
[2020-01-14] MEDS: Famotidine 20 MG/2 ML SDV IVPUSH SCH (19:46)
[2020-01-14] MEDS: Pantoprazole 40 MG Vial IVPUSH SCH (19:46)
[2020-01-14] MEDS: Sodium Chloride 0.9% 10 ML Syringe FLUSH SCH (19:52)
[2020-01-14] MEDS: Clotrimazole 1% Crm 30 GM Tube TOP SCH (19:58)
[2020-01-14] MEDS ORDERED: Temazepam 15 MG Cap PO PRN (20:00)
[2020-01-14] MEDS: D5 1/2 NS w/ 20 mEq/L KCl 1,000 ML IV SCH (23:50)
[2020-01-14] MEDS: Ondansetron 4 MG/2 ML SDV IVPUSH PRN (23:58)
[2020-01-15] MEDS: Ciprofloxacin in D5W 200 MG in Premix Bag 1 BAG IV SCH ×4 (03:57→16:52)
[2020-01-15] MEDS: Ketorolac 15 MG/ML SDV IVPUSH PRN ×2 (04:30→10:30)
[2020-01-15] MEDS: Sodium Chloride 0.9% 10 ML Syringe FLUSH PRN ×6 (04:31→22:25)
[2020-01-15 07:56] LABS: CHLORIDE,CL 107 mmol/L (98-107); SODIUM,NA 139 mmol/L (136-145)
[2020-01-15 08:21] LABS: HEMOGLOBIN A1C 5.3 % (4.3-5.7)
[2020-01-15] MEDS: Sodium Chloride 0.9% 10 ML Syringe FLUSH SCH ×2 (08:32→19:37)
[2020-01-15] MEDS: Famotidine 20 MG/2 ML SDV IVPUSH SCH ×2 (08:32→19:37)
[2020-01-15] MEDS: Pantoprazole 40 MG Vial IVPUSH SCH ×2 (08:32→19:37)
[2020-01-15] MEDS: Clotrimazole 1% Crm 30 GM Tube TOP SCH ×2 (08:33→19:37)
[2020-01-15] MEDS: metroNIDAZOLE/Normal Saline 500 MG in Premix Bag 1 BAG IV SCH ×3 (08:33→22:25)
[2020-01-15] MEDS: Acetaminophen 325 MG Tab PO PRN ×2 (08:51→19:36)
--- NOTE | 2020-01-15 10:14 | PCM.PN ---
- General Info Date of Service: 01/15/20 Admission Dx/Problem (Free Text): Patient states abdominal pain is improving and she is having less output than she was prior to admission. She would really like to have some coffee to prevent a caffeine headache. Functional Status: Reports: Pain Controlled, Ambulating, Urinating. Denies: Tolerating Diet (Patient currently NPO) - Review of Systems General: Reports: Weakness. Denies: Fever HEENT: Reports: No Symptoms Pulmonary: Reports: No Symptoms Cardiovascular: Reports: No Symptoms Gastrointestinal: Reports: Abdominal Pain (improved from admission), Diarrhea. Denies: Nausea, Vomiting Genitourinary: Reports: No Symptoms Musculoskeletal: Reports: No Symptoms Neurological: Reports: No Symptoms Psychiatric: Reports: Depression, Anxiety - Patient Data Vitals - Most Recent: Last Vital Signs Temp 97.7 F 01/15/20 08:00 Pulse 60 01/15/20 08:00 Resp 18 01/15/20 08:00 BP 138/78 01/15/20 08:00 Pulse Ox 94 L 01/15/20 08:00 Weight - Most Recent: 171 lb 14.4 oz I&O - Last 24 Hours: Intake & Output 01/14/20 01/15/20 01/15/20 22:59 06:59 14:59 Intake Total 615 1150 Output Total 1251 750 Balance -636 400 Lab Results Last 24 Hours: Laboratory Results - last 24 hr 01/14/20 01/14/20 01/14/20 Range/Units 10:18 10:18 11:24 WBC 10.3 H (4.0-10.2) K/uL RBC 4.80 (3.77-5.09) M/uL Hgb 15.1 (11.7-15.5) g/dL Hct 45.8 (34.0-46.0) % MCV 95.4 (84.0-98.0) fL MCH 31.5 (28.2-33.3) pg MCHC 33.0 (31.7-36.0) g/dL RDW 13.6 (11.2-14.1) % Plt Count 209 (150-350) K/uL Neut % (Auto) 46.6 (45.0-80.0) % Lymph % (Auto) 38.6 (10.0-50.0) % [place] % (Auto) 10.1 (2.0-14.0) % Eos % (Auto) 4.0 (0.0-5.0) % Baso % (Auto) 0.7 (0.0-2.0) % Neut # (Auto) 4.79 (1.40-7.00) K/uL Lymph # (Auto) 3.97 H (0.50-3.50) K/uL [place] # (Auto) 1.04 H (0.00-1.00) K/uL Eos # (Auto) 0.41 (0.00-0.50) K/uL Baso # (Auto) 0.07 (0.00-0.20) K/uL PT (9.5-12.0) SEC INR APTT (24.5-32.8) SEC Sodium 141 (136-145) mmol/L Potassium 3.9 (3.5-5.1) mmol/L Chloride 105 (98-107) mmol/L Carbon Dioxide 25.6 (21.0-32.0) mmol/L BUN 23 H (7-18) mg/dL Creatinine 0.81 (0.51-1.17) mg/dL Est Cr Clr Drug Dosing 69.14 mL/min Estimated GFR (MDRD) > 60 mL/min Glucose 102 (74-106) mg/dL Hemoglobin A1c (4.3-5.7) % Lactic Acid (0.4-2.0) mmol/L Calcium 9.0 (8.5-10.1) mg/dL Magnesium (1.8-2.4) mg/dL Total Bilirubin 0.3 (0.2-1.0) mg/dL AST 41 H (15-37) U/L ALT 112 H (12-78) U/L Alkaline Phosphatase 112 (46-116) IU/L C-Reactive Protein < 0.2 (<=0.9) mg/dL Total Protein 7.4 (6.4-8.2) g/dL Albumin 3.8 (3.4-5.0) g/dL Triglycerides (30-150) mg/dL Cholesterol (100-200) mg/dL LDL Cholesterol, Calc (0-100) mg/dL HDL Cholesterol (40-60) mg/dL Amylase 161 H (25-115) U/L Lipase 866 H (73-393) U/L TSH, Ultra Sensitive 2.680 (0.358-3.740) mIU/mL Specimen Type Urine Color Urine Appearance Urine pH (5.0-9.0) Ur Specific Ranger (1.005-1.030) Urine Protein (NEGATIVE) mg/dL Urine Glucose (UA) (NEGATIVE) mg/dL Urine Ketones (NEGATIVE) mg/dL Urine Occult Blood (NEGATIVE) Urine Nitrite (NEGATIVE) Urine Bilirubin (NEGATIVE) Urine Urobilinogen (0.2-1.0) E.U./dL Ur Leukocyte Esterase (NEGATIVE) Urine RBC /HPF Urine WBC /HPF Ur Epithelial Cells /LPF Urine Bacteria (NONE TO FEW) /HPF Ethyl Alcohol 0.002 (0.000-0.080) g/dL 01/14/20 01/14/20 01/14/20 Range/Units 13:30 13:35 14:28 WBC (4.0-10.2) K/uL RBC (3.77-5.09) M/uL Hgb (11.7-15.5) g/dL Hct (34.0-46.0) % MCV (84.0-98.0) fL MCH (28.2-33.3) pg MCHC (31.7-36.0) g/dL RDW (11.2-14.1) % Plt Count (150-350) K/uL Neut % (Auto) (45.0-80.0) % Lymph % (Auto) (10.0-50.0) % [place] % (Auto) (2.0-14.0) % Eos % (Auto) (0.0-5.0) % Baso % (Auto) (0.0-2.0) % Neut # (Auto) (1.40-7.00) K/uL Lymph # (Auto) (0.50-3.50) K/uL [place] # (Auto) (0.00-1.00) K/uL Eos # (Auto) (0.00-0.50) K/uL Baso # (Auto) (0.00-0.20) K/uL PT 9.8 (9.5-12.0) SEC INR 1.0 APTT 25.2 (24.5-32.8) SEC Sodium (136-145) mmol/L Potassium (3.5-5.1) mmol/L Chloride (98-107) mmol/L Carbon Dioxide (21.0-32.0) mmol/L BUN (7-18) mg/dL Creatinine (0.51-1.17) mg/dL Est Cr Clr Drug Dosing mL/min Estimated GFR (MDRD) mL/min Glucose (74-106) mg/dL Hemoglobin A1c (4.3-5.7) % Lactic Acid 1.5 (0.4-2.0) mmol/L Calcium (8.5-10.1) mg/dL Magnesium (1.8-2.4) mg/dL Total Bilirubin (0.2-1.0) mg/dL AST (15-37) U/L ALT (12-78) U/L Alkaline Phosphatase (46-116) IU/L C-Reactive Protein (<=0.9) mg/dL Total Protein (6.4-8.2) g/dL Albumin (3.4-5.0) g/dL Triglycerides (30-150) mg/dL Cholesterol (100-200) mg/dL LDL Cholesterol, Calc (0-100) mg/dL HDL Cholesterol (40-60) mg/dL Amylase (25-115) U/L Lipase (73-393) U/L TSH, Ultra Sensitive (0.358-3.740) mIU/mL Specimen Type Urinvoid Urine Color Yellow Urine Appearance Clear Urine pH 5.5 (5.0-9.0) Ur Specific [place] >= 1.030 (1.005-1.030) Urine Protein Negative (NEGATIVE) mg/dL Urine Glucose (UA) Negative (NEGATIVE) mg/dL Urine Ketones Negative (NEGATIVE) mg/dL Urine Occult Blood Negative (NEGATIVE) Urine Nitrite Negative (NEGATIVE) Urine Bilirubin Negative (NEGATIVE) Urine Urobilinogen 0.2 (0.2-1.0) E.U./dL Ur Leukocyte Esterase Negative (NEGATIVE) Urine RBC Not seen /HPF Urine WBC 0-5 /HPF Ur Epithelial Cells Moderate H /LPF Urine Bacteria Rare (NONE TO FEW) /HPF Ethyl Alcohol (0.000-0.080) g/dL 01/15/20 01/15/20 01/15/20 Range/Units 07:30 07:30 07:30 WBC 6.5 (4.0-10.2) K/uL RBC 4.08 (3.77-5.09) M/uL Hgb 12.8 D (11.7-15.5) g/dL Hct 39.8 (34.0-46.0) % MCV 97.5 (84.0-98.0) fL MCH 31.4 (28.2-33.3) pg MCHC 32.2 (31.7-36.0) g/dL RDW 13.4 (11.2-14.1) % Plt Count 179 (150-350) K/uL Neut % (Auto) 39.1 L (45.0-80.0) % Lymph % (Auto) 42.3 (10.0-50.0) % [place] % (Auto) 10.2 (2.0-14.0) % Eos % (Auto) 7.3 H (0.0-5.0) % Baso % (Auto) 1.1 (0.0-2.0) % Neut # (Auto) 2.52 (1.40-7.00) K/uL Lymph # (Auto) 2.73 (0.50-3.50) K/uL [place] # (Auto) 0.66 (0.00-1.00) K/uL Eos # (Auto) 0.47 (0.00-0.50) K/uL Baso # (Auto) 0.07 (0.00-0.20) K/uL PT (9.5-12.0) SEC INR APTT (24.5-32.8) SEC Sodium 139 (136-145) mmol/L Potassium 4.0 (3.5-5.1) mmol/L Chloride 107 (98-107) mmol/L Carbon Dioxide 25.6 (21.0-32.0) mmol/L BUN 12 (7-18) mg/dL Creatinine 0.82 (0.51-1.17) mg/dL Est Cr Clr Drug Dosing 68.67 mL/min Estimated GFR (MDRD) > 60 mL/min Glucose 82 (74-106) mg/dL Hemoglobin A1c 5.3 (4.3-5.7) % Lactic Acid (0.4-2.0) mmol/L Calcium 8.0 L (8.5-10.1) mg/dL Magnesium 1.8 (1.8-2.4) mg/dL Total Bilirubin 0.4 (0.2-1.0) mg/dL AST 47 H (15-37) U/L ALT 97 H (12-78) U/L Alkaline Phosphatase 83 (46-116) IU/L C-Reactive Protein (<=0.9) mg/dL Total Protein 6.0 L (6.4-8.2) g/dL Albumin 3.0 L (3.4-5.0) g/dL Triglycerides 161 H (30-150) mg/dL Cholesterol 137 (100-200) mg/dL LDL Cholesterol, Calc 64 (0-100) mg/dL HDL Cholesterol 41 (40-60) mg/dL Amylase 166 H (25-115) U/L Lipase 720 H (73-393) U/L TSH, Ultra Sensitive (0.358-3.740) mIU/mL Specimen Type Urine Color Urine Appearance Urine pH (5.0-9.0) Ur Specific [place] (1.005-1.030) Urine Protein (NEGATIVE) mg/dL Urine Glucose (UA) (NEGATIVE) mg/dL Urine Ketones (NEGATIVE) mg/dL Urine Occult Blood (NEGATIVE) Urine Nitrite (NEGATIVE) Urine Bilirubin (NEGATIVE) Urine Urobilinogen (0.2-1.0) E.U./dL Ur Leukocyte Esterase (NEGATIVE) Urine RBC /HPF Urine WBC /HPF Ur Epithelial Cells /LPF Urine Bacteria (NONE TO FEW) /HPF Ethyl Alcohol (0.000-0.080) g/dL Nikunj Results Last 24 Hours: Microbiology 01/14/20 14:22 Stool Occult Blood (NIKUNJ) - Final Stool / Feces NEGATIVE OCCULT BLOOD REFERENCE RANGE: NEGATIVE Med Orders - Current: Current Medications Acetaminophen (Tylenol) 650 mg PO Q4H PRN PRN Reason: Pain Last Admin: 01/15/20 08:51 Dose: 650 mg Acetaminophen (Tylenol) 650 mg RECTAL Q4H PRN PRN Reason: Pain/Fever Clotrimazole (Lotrimin Af 1% Crm) 1 gm TOP BID@0800,2000 [facility] Last Admin: 01/15/20 08:33 Dose: 1 applic Enoxaparin Sodium (Lovenox) 40 mg SUBCUT Q24H [facility] Last Admin: 01/14/20 17:47 Dose: 40 mg Famotidine (Pepcid) 20 mg IVPUSH BID@799,1999 [facility] Last Admin: 01/15/20 08:32 Dose: 20 mg Heparin Sodium (Porcine) (Heparin Lock Flush 100 Units/Ml) 500 units FLUSH ASDIRECTED PRN PRN Reason: Keep Vein Open Hydromorphone HCl (Dilaudid) 1 mg IVPUSH Q6H PRN PRN Reason: Pain (severe 7-10) Last Admin: 01/14/20 19:42 Dose: 1 mg Potassium Chloride/Dextrose/Sod Cl (D5 1/2 Ns W/ 20 Meq/L Kcl) 1,000 mls @ 75 mls/hr IV ASDIRECTED [facility] Last Admin: 01/14/20 23:50 Dose: 75 mls/hr Ciprofloxacin/Dextrose 200 mg/ (Premix) 100 mls @ 100 mls/hr IV Q12H [facility] Last Admin: 01/15/20 03:57 Dose: 100 mls/hr Metronidazole 500 mg/ Premix 100 mls @ 100 mls/hr IV Q8H [facility] Last Admin: 01/15/20 08:33 Dose: 100 mls/hr Ketorolac Tromethamine (Toradol) 15 mg IVPUSH Q6H PRN PRN Reason: Pain (moderate 4-6) Stop: 01/19/20 16:31 Last Admin: 01/15/20 04:30 Dose: 15 mg Lorazepam (Ativan) 1 mg IVPUSH Q6H PRN PRN Reason: Anxiety Ondansetron HCl (Zofran) 4 mg IVPUSH Q6H PRN PRN Reason: Nausea/Vomiting Last Admin: 01/14/20 23:58 Dose: 4 mg Pantoprazole Sodium (Protonix Iv) 40 mg IVPUSH BID@ [facility] Last Admin: 01/15/20 08:32 Dose: 40 mg Sodium Chloride (Saline Flush) 10 ml FLUSH ASDIRECTED PRN PRN Reason: Keep Vein Open Last Admin: 01/15/20 08:37 Dose: 10 ml Sodium Chloride (Saline Flush) 10 ml FLUSH Q12HR [facility] Last Admin: 01/15/20 08:32 Dose: 10 ml Discontinued Medications Diatrizoate Meglum/Diatrizoate Sod (Gastrografin 37%) 30 ml PO ONETIME ONE Stop: 01/14/20 13:01 Last Admin: 01/14/20 13:40 Dose: 30 ml Famotidine (Pepcid) 20 mg IVPUSH Q12H [facility] Famotidine (Pepcid) 20 mg IVPUSH Q12H [facility] Last Admin: 01/14/20 15:41 Dose: 20 mg Hydromorphone HCl (Dilaudid) 1 mg IVPUSH ONETIME ONE Stop: 01/14/20 11:41 Last Admin: 01/14/20 12:30 Dose: 1 mg Sodium Chloride (Normal Saline) 1,000 mls @ 500 mls/hr IV ASDIRECTED [facility] Last Admin: 01/14/20 10:17 Dose: 500 mls/hr Sodium Chloride (Normal Saline) 1,000 mls @ 125 mls/hr IV ASDIRECTED [facility] Last Admin: 01/14/20 12:28 Dose: 125 mls/hr Ciprofloxacin/Dextrose 200 mg/ (Premix) 100 mls @ 100 mls/hr IV Q12H [facility] Metronidazole 500 mg/ Premix 100 mls @ 100 mls/hr IV Q8H [facility] Iopamidol (Isovue-300 (61%)) 100 ml IVPUSH ONETIME ONE Stop: 01/14/20 13:01 Last Admin: 01/14/20 13:40 Dose: 100 ml Ketorolac Tromethamine (Toradol) 30 mg IVPUSH ONETIME ONE Stop: 01/14/20 09:47 Last Admin: 01/14/20 10:31 Dose: 30 mg Lorazepam (Ativan) 1 mg PO ONETIME ONE Stop: 01/14/20 09:46 Last Admin: 01/14/20 10:28 Dose: 1 mg Ondansetron HCl (Zofran) 4 mg IVPUSH ONETIME ONE Stop: 01/14/20 09:47 Last Admin: 01/14/20 10:29 Dose: 4 mg Pantoprazole Sodium (Protonix Iv) 40 mg IVPUSH Q12H [facility] Pantoprazole Sodium (Protonix Iv) 40 mg IVPUSH Q12H [facility] Last Admin: 01/14/20 15:41 Dose: 40 mg Temazepam (Restoril) 15 mg PO DAILY@2000 PRN PRN Reason: Insomnia - Exam Quality Assessment: Central Line/PICC (PORT) General: Cooperative, No Acute Distress Lungs: Clear to Auscultation, Normal Respiratory Effort Cardiovascular: Regular Rate, Regular Rhythm GI/Abdominal Exam: Soft, No Distention, Tender, Abnormal Bowel Sounds ( hyperactive) Skin: Warm, Dry, Intact Psy/Mental Status: Alert, Normal Affect, Normal Mood Sepsis Event Note - Evaluation Sepsis Screening Result: No Definite Risk - Focused Exam Vital Signs: Vital Signs Temp Pulse Resp BP Pulse Ox 01/15/20 08:00 97.7 F 60 18 138/78 94 L 01/15/20 04:00 98.1 F 65 16 134/75 95 01/14/20 23:51 98.1 F 60 16 136/77 95 Date Exam was Performed: 01/15/20 Time Exam was Performed: 10:09 - Problem List & Annotations (1) Elevated LFTs SNOMED Code(s): 861180849, 971627853 Code(s): R94.5 - ABNORMAL RESULTS OF LIVER FUNCTION STUDIES Status: Acute Priority: Medium Current Visit: Yes Onset Date: 09/08/19 Annotation/ Comment:: History of chronic LFTs elevation incidental fatty liver. Continuing to monitor labs. After discussing with Dr. aNrvaez, patient will remain NPO x 24 hours. (2) PENITENTIARY (familial polyposis coli) SNOMED Code(s): 08729671 Code(s): D12.6 - BENIGN NEOPLASM OF COLON, UNSPECIFIED Status: Chronic Priority: Medium Current Visit: Yes Annotation/Comment:: Note history of bile duct obstruction secondary to colonic polyps with patient currently status post complete colectomy. MRI order placed in clinic EMR for Tuesday. Referral for GI consult as patient reports not seeing a local GI specialist since relocating to our area. (3) Chronic inflammation of pancreas SNOMED Code(s): 181381630 Code(s): K86.1 - OTHER CHRONIC PANCREATITIS Status: Chronic Priority: Medium Current Visit: No Qualifiers: Pancreatitis type: unspecified pancreatitis type Qualified Code(s): K86.1 - Other chronic pancreatitis Annotation/Comment:: Stable by history despite mild LFTs elevation today. Note current ileostomy. Referral to GI put in clinic EMR. (4) Ileostomy in place SNOMED Code(s): 517165843 Code(s): Z93.2 - ILEOSTOMY STATUS Status: Chronic Priority: Low Current Visit: No Annotation/Comment:: Large amount of output. Will continue to monitor. - Problem List Review Problem List Initiated/Reviewed/Updated: Yes - My Orders Last 24 Hours: My Active Orders 01/14/20 09:41 Communication Order [RC] ROUTINE 01/14/20 09:51 Sodium Chloride 0.9% [Saline Flush] 10 ml FLUSH ASDIRECTED PRN 01/14/20 09:52 Heparin Sodium [Heparin Lock Flush 100 Units/ML] 500 units FLUSH ASDIRECTED PRN 01/14/20 11:23 Abdomen Pelvis w Cont [CT] Routine 01/16/20 05:11 AMYLASE [CHEM] Routine CBC WITH AUTO DIFF [HEME] Routine COMPREHENSIVE METABOLIC PN,CMP [CHEM] Routine LIPASE [CHEM] Routine - Plan Plan:: See above. Will continue with IV fluids and antibiotics as previously ordered. Patient will remain NPO per discussion with Dr. Narvaez. AM labs ordered. Will possibly repeat abdominal x-ray if patient still having pain tomorrow. Monitoring ileostomy output. Plan of care discussion with Dr. Narvaez this AM.
[2020-01-15] MEDS ORDERED: metroNIDAZOLE/Normal Saline 500 MG in Premix Bag 1 BAG IV SCH (15:00)
[2020-01-15] MEDS ORDERED: Pantoprazole 40 MG Vial IVPUSH SCH (15:00)
[2020-01-15] MEDS ORDERED: Famotidine 20 MG/2 ML SDV IVPUSH SCH (15:00)
[2020-01-15] MEDS ORDERED: Ciprofloxacin in D5W 200 MG in Premix Bag 1 BAG IV SCH ×2 (16:00)
[2020-01-15] MEDS: HYDROmorphone 1 MG/ML Syringe IVPUSH PRN ×2 (16:22→22:24)
[2020-01-15] MEDS: Enoxaparin 40 MG/0.4 ML Syringe SUBCUT SCH (16:52)
[2020-01-15] MEDS: D5 1/2 NS w/ 20 mEq/L KCl 1,000 ML IV SCH (18:47)
[2020-01-15] MEDS ORDERED: Nicotine 7 MG/24 Hr Patch TRDERM SCH (20:00)
[2020-01-15] MEDS: Ondansetron 4 MG/2 ML SDV IVPUSH PRN (20:32)
[2020-01-16] MEDS: Ondansetron 4 MG/2 ML SDV IVPUSH PRN (01:50)
[2020-01-16] MEDS: Sodium Chloride 0.9% 10 ML Syringe FLUSH PRN (01:51)
[2020-01-16] MEDS: Ciprofloxacin in D5W 200 MG in Premix Bag 1 BAG IV SCH ×2 (04:06)
[2020-01-16] MEDS ORDERED: Promethazine 25 MG/ML SDV IM ONE (04:19)
[2020-01-16 08:29] VITALS: BP 139/75; PULSE 66
[2020-01-16 08:48] LABS: CHLORIDE,CL 109 mmol/L (98-107); SODIUM,NA 142 mmol/L (136-145)
[2020-01-16] MEDS: Pantoprazole 40 MG Vial IVPUSH SCH (09:00)
[2020-01-16] MEDS ORDERED: Ondansetron 4 MG Tab.DIS PO PRN (09:00)
[2020-01-16] MEDS: Famotidine 20 MG/2 ML SDV IVPUSH SCH (09:00)
[2020-01-16] MEDS: metroNIDAZOLE/Normal Saline 500 MG in Premix Bag 1 BAG IV SCH (09:01)
[2020-01-16] MEDS: Sodium Chloride 0.9% 10 ML Syringe FLUSH SCH (09:01)
[2020-01-16] MEDS: Clotrimazole 1% Crm 30 GM Tube TOP SCH (09:01)
--- NOTE | 2020-01-16 09:09 | PCM.PN ---
- General Info Date of Service: 01/16/20 Admission Dx/Problem (Free Text): Patient is hoping to go home today. Nursing staff report that she typically smokes 3-4 cigarettes/day and she requested a Nicotine patch. This was administered and then she became more nauseated so it was discontinued and she received a dose of Phenergan IM which resulted in her feeling very "out of it." Her pain has improved to a 2/10. Functional Status: Reports: Pain Controlled, Ambulating, Urinating - Review of Systems General: Reports: Other (feels quesy but thinks it is due to being hungry). Denies: Fever, Chills HEENT: Reports: No Symptoms Pulmonary: Reports: No Symptoms Cardiovascular: Reports: No Symptoms Gastrointestinal: Reports: Abdominal Pain (rates it a 2/10), Nausea (at times but relates it to being hungry). Denies: Difficulty Swallowing, Vomiting Genitourinary: Reports: No Symptoms Musculoskeletal: Reports: No Symptoms Skin: Reports: No Symptoms Neurological: Reports: No Symptoms Psychiatric: Reports: Depression, Anxiety - Patient Data Vitals - Most Recent: Last Vital Signs Temp 99.0 F 01/16/20 08:00 Pulse 66 01/16/20 08:00 Resp 18 01/16/20 08:00 BP 139/75 01/16/20 08:00 Pulse Ox 93 L 01/16/20 08:00 Weight - Most Recent: 171 lb 14.4 oz I&O - Last 24 Hours: Intake & Output 01/15/20 01/16/20 01/16/20 22:59 06:59 14:59 Intake Total 975 885 Output Total 950 1350 Balance 25 -465 Lab Results Last 24 Hours: Laboratory Results - last 24 hr 01/16/20 01/16/20 Range/Units 08:20 08:20 WBC 5.8 (4.0-10.2) K/uL RBC 3.83 (3.77-5.09) M/uL Hgb 11.9 (11.7-15.5) g/dL Hct 36.4 (34.0-46.0) % MCV 95.0 (84.0-98.0) fL MCH 31.1 (28.2-33.3) pg MCHC 32.7 (31.7-36.0) g/dL RDW 12.5 (11.2-14.1) % Plt Count 160 (150-350) K/uL Neut % (Auto) 43.5 L (45.0-80.0) % Lymph % (Auto) 38.1 (10.0-50.0) % [place] % (Auto) 9.9 (2.0-14.0) % Eos % (Auto) 7.6 H (0.0-5.0) % Baso % (Auto) 0.9 (0.0-2.0) % Neut # (Auto) 2.51 (1.40-7.00) K/uL Lymph # (Auto) 2.20 (0.50-3.50) K/uL [place] # (Auto) 0.57 (0.00-1.00) K/uL Eos # (Auto) 0.44 (0.00-0.50) K/uL Baso # (Auto) 0.05 (0.00-0.20) K/uL Sodium 142 (136-145) mmol/L Potassium 3.2 L (3.5-5.1) mmol/L Chloride 109 H (98-107) mmol/L Carbon Dioxide 24.3 (21.0-32.0) mmol/L BUN 6 L (7-18) mg/dL Creatinine 0.72 (0.51-1.17) mg/dL Est Cr Clr Drug Dosing 78.21 mL/min Estimated GFR (MDRD) > 60 mL/min Glucose 80 (74-106) mg/dL Calcium 7.5 L (8.5-10.1) mg/dL Total Bilirubin 0.3 (0.2-1.0) mg/dL AST 37 (15-37) U/L ALT 79 H (12-78) U/L Alkaline Phosphatase 75 (46-116) IU/L Total Protein 5.4 L (6.4-8.2) g/dL Albumin 2.8 L (3.4-5.0) g/dL Amylase 136 H (25-115) U/L Lipase 544 H (73-393) U/L Med Orders - Current: Current Medications Acetaminophen (Tylenol) 650 mg PO Q4H PRN PRN Reason: Pain Last Admin: 01/15/20 19:36 Dose: 650 mg Acetaminophen (Tylenol) 650 mg RECTAL Q4H PRN PRN Reason: Pain/Fever Clotrimazole (Lotrimin Af 1% Crm) 1 gm TOP BID@ [facility] Last Admin: 01/16/20 09:01 Dose: Not Given Enoxaparin Sodium (Lovenox) 40 mg SUBCUT Q24H [facility] Last Admin: 01/15/20 16:52 Dose: 40 mg Famotidine (Pepcid) 20 mg IVPUSH BID@ [facility] Last Admin: 01/16/20 09:00 Dose: 20 mg Heparin Sodium (Porcine) (Heparin Lock Flush 100 Units/Ml) 500 units FLUSH ASDIRECTED PRN PRN Reason: Keep Vein Open Potassium Chloride/Dextrose/Sod Cl (D5 1/2 Ns W/ 20 Meq/L Kcl) 1,000 mls @ 75 mls/hr IV ASDIRECTED [facility] Last Admin: 01/15/20 18:47 Dose: 75 mls/hr Ciprofloxacin/Dextrose 200 mg/ (Premix) 100 mls @ 100 mls/hr IV Q12H [facility] Last Admin: 01/16/20 04:06 Dose: 100 mls/hr Metronidazole 500 mg/ Premix 100 mls @ 100 mls/hr IV Q8H [facility] Last Admin: 01/16/20 09:01 Dose: 100 mls/hr Ketorolac Tromethamine (Toradol) 15 mg IVPUSH Q6H PRN PRN Reason: Pain (moderate 4-6) Stop: 01/19/20 16:31 Last Admin: 01/15/20 10:30 Dose: 15 mg Lorazepam (Ativan) 1 mg IVPUSH Q6H PRN PRN Reason: Anxiety Miscellaneous Information (Remove Patch) 1 ea TRDERM DAILY@1999 [facility] Nicotine (Habitrol) 7 mg TRDERM DAILY@1999 [facility] Last Admin: 01/15/20 20:31 Dose: 7 mg Ondansetron HCl (Zofran Odt) 4 mg PO Q6H PRN PRN Reason: Nausea/Vomiting Pantoprazole Sodium (Protonix Iv) 40 mg IVPUSH BID@ [facility] Last Admin: 01/16/20 09:00 Dose: 40 mg Sodium Chloride (Saline Flush) 10 ml FLUSH ASDIRECTED PRN PRN Reason: Keep Vein Open Last Admin: 01/16/20 01:51 Dose: 10 ml Sodium Chloride (Saline Flush) 10 ml FLUSH Q12HR [facility] Last Admin: 01/16/20 09:01 Dose: 10 ml Discontinued Medications Diatrizoate Meglum/Diatrizoate Sod (Gastrografin 37%) 30 ml PO ONETIME ONE Stop: 01/14/20 13:01 Last Admin: 01/14/20 13:40 Dose: 30 ml Famotidine (Pepcid) 20 mg IVPUSH Q12H [facility] Famotidine (Pepcid) 20 mg IVPUSH Q12H [facility] Last Admin: 01/14/20 15:41 Dose: 20 mg Hydromorphone HCl (Dilaudid) 1 mg IVPUSH ONETIME ONE Stop: 01/14/20 11:41 Last Admin: 01/14/20 12:30 Dose: 1 mg Hydromorphone HCl (Dilaudid) 1 mg IVPUSH Q6H PRN PRN Reason: Pain (severe 7-10) Last Admin: 01/15/20 22:24 Dose: 1 mg Sodium Chloride (Normal Saline) 1,000 mls @ 500 mls/hr IV ASDIRECTED [facility] Last Admin: 01/14/20 10:17 Dose: 500 mls/hr Sodium Chloride (Normal Saline) 1,000 mls @ 125 mls/hr IV ASDIRECTED [facility] Last Admin: 01/14/20 12:28 Dose: 125 mls/hr Ciprofloxacin/Dextrose 200 mg/ (Premix) 100 mls @ 100 mls/hr IV Q12H [facility] Metronidazole 500 mg/ Premix 100 mls @ 100 mls/hr IV Q8H [facility] Iopamidol (Isovue-300 (61%)) 100 ml IVPUSH ONETIME ONE Stop: 01/14/20 13:01 Last Admin: 01/14/20 13:40 Dose: 100 ml Ketorolac Tromethamine (Toradol) 30 mg IVPUSH ONETIME ONE Stop: 01/14/20 09:47 Last Admin: 01/14/20 10:31 Dose: 30 mg Lorazepam (Ativan) 1 mg PO ONETIME ONE Stop: 01/14/20 09:46 Last Admin: 01/14/20 10:28 Dose: 1 mg Ondansetron HCl (Zofran) 4 mg IVPUSH ONETIME ONE Stop: 01/14/20 09:47 Last Admin: 01/14/20 10:29 Dose: 4 mg Ondansetron HCl (Zofran) 4 mg IVPUSH Q6H PRN PRN Reason: Nausea/Vomiting Last Admin: 01/16/20 01:50 Dose: 4 mg Pantoprazole Sodium (Protonix Iv) 40 mg IVPUSH Q12H [facility] Pantoprazole Sodium (Protonix Iv) 40 mg IVPUSH Q12H [facility] Last Admin: 01/14/20 15:41 Dose: 40 mg Promethazine HCl (Phenergan) 25 mg IM ONETIME ONE Stop: 01/16/20 04:20 Last Admin: 01/16/20 04:31 Dose: 25 mg Temazepam (Restoril) 15 mg PO DAILY@1999 PRN PRN Reason: Insomnia - Exam Quality Assessment: Central Line/PICC (PORT access) General: Alert, Oriented, Cooperative, No Acute Distress HEENT: Pupils Equal, Pupils Reactive, EOMI, Mucous Membr. Moist/[place] Neck: Supple Lungs: Clear to Auscultation, Normal Respiratory Effort Cardiovascular: Regular Rate, Regular Rhythm GI/Abdominal Exam: Normal Bowel Sounds, No Distention, Tender (improved from admission, most tender in LLQ) Extremities: Normal Range of Motion, No Pedal Edema, Normal Capillary Refill Skin: Warm, Dry, Intact Neurological: No New Focal Deficit Psy/Mental Status: Alert, Normal Affect, Normal Mood Sepsis Event Note - Evaluation Sepsis Screening Result: No Definite Risk - Focused Exam Vital Signs: Vital Signs Temp Pulse Resp BP BP Pulse Ox 01/16/20 08:00 99.0 F 66 18 139/75 93 L 01/16/20 04:00 98.8 F 63 16 177/86 H 95 01/15/20 23:32 98.4 F 60 16 136/88 92 L Date Exam was Performed: 01/16/20 Time Exam was Performed: 09:03 - Problem List & Annotations (1) Elevated LFTs SNOMED Code(s): 731697442, 437365641 Code(s): R94.5 - ABNORMAL RESULTS OF LIVER FUNCTION STUDIES Status: Acute Priority: Medium Current Visit: Yes Onset Date: 09/08/19 Annotation/ Comment:: History of chronic LFTs elevation incidental fatty liver. Continuing to monitor labs. Will advance diet as tolerated. (2) CUSTODIAL (familial polyposis coli) SNOMED Code(s): 67240653 Code(s): D12.6 - BENIGN NEOPLASM OF COLON, UNSPECIFIED Status: Chronic Priority: Medium Current Visit: Yes Annotation/Comment:: Note history of bile duct obstruction secondary to colonic polyps with patient currently status post complete colectomy. MRI order placed in clinic EMR for Tuesday. Referral for GI consult as patient reports not seeing a local GI specialist since relocating to our area. (3) Chronic inflammation of pancreas SNOMED Code(s): 647081028 Code(s): K86.1 - OTHER CHRONIC PANCREATITIS Status: Chronic Priority: Medium Current Visit: No Qualifiers: Pancreatitis type: unspecified pancreatitis type Qualified Code(s): K86.1 - Other chronic pancreatitis Annotation/Comment:: Stable by history despite mild LFTs elevation today. Note current ileostomy. Referral to GI put in clinic EMR. (4) Ileostomy in place SNOMED Code(s): 013406629 Code(s): Z93.2 - ILEOSTOMY STATUS Status: Chronic Priority: Low Current Visit: No Annotation/Comment:: Output has decreased in half from yesterday. Will continue to monitor. - Problem List Review Problem List Initiated/Reviewed/Updated: Yes - My Orders Last 24 Hours: My Active Orders 01/16/20 09:01 Ondansetron [Zofran ODT] 4 mg PO Q6H PRN 01/16/20 Lunch Clear Liquid Diet [DIET] - Plan Plan:: See above. Will advance diet as tolerated and if doing well will discharge her home this afternoon per her request if pending labs look adequate. An appointment will be scheduled for MRI on Tuesday in [place] and a referral will be sent to GI once discharged.
[2020-01-16] MEDS ORDERED: Sodium Chloride 0.9% 10 ML Syringe FLUSH PRN (09:25)
--- NOTE | 2020-01-16 14:29 | PCM.DCSUM1 ---
Discharge Summary - Hospital Course Free Text/Narrative:: Patient was initially seen in the clinic Diagnosis: Stroke: No - Discharge Data Discharge Date: 01/16/20 Discharge Disposition: Home, Self-Care 01 Condition: Good - Referral to Home Health Primary Care Physician: Lissette Baird NP - Discharge Diagnosis/Problem(s) (1) Elevated LFTs SNOMED Code(s): 591383460, 742219020 ICD Code: R94.5 - ABNORMAL RESULTS OF LIVER FUNCTION STUDIES Status: Acute Priority: Medium Current Visit: Yes Onset Date: 09/08/19 Problem Details: History of chronic LFTs elevation incidental fatty liver. Labs improving. Patient tolerating advanced diet. (2) HALF-WAY (familial polyposis coli) SNOMED Code(s): 49602428 ICD Code: D12.6 - BENIGN NEOPLASM OF COLON, UNSPECIFIED Status: Chronic Priority: Medium Current Visit: Yes Problem Details: Note history of bile duct obstruction secondary to colonic polyps with patient currently status post complete colectomy. MRI order placed in clinic EMR for Tuesday. Referral for GI consult as patient reports not seeing a local GI specialist since relocating to our area. (3) Chronic inflammation of pancreas SNOMED Code(s): 117766675 ICD Code: K86.1 - OTHER CHRONIC PANCREATITIS Status: Acute Priority: Medium Current Visit: No Problem Details: Stable by history despite mild LFTs elevation. Note current ileostomy. Referral to GI put in clinic EMR. Patient reports being pain free this afternoon. Qualifiers: Pancreatitis type: unspecified pancreatitis type Qualified Code(s): K86.1 - Other chronic pancreatitis (4) Ileostomy in place SNOMED Code(s): 457189083 ICD Code: Z93.2 - ILEOSTOMY STATUS Status: Chronic Priority: Low Current Visit: No Problem Details: Output has decreased in half from yesterday. Patient will continue to monitor at home. (5) Intestinal infection SNOMED Code(s): 054948014 ICD Code: A09 - INFECTIOUS GASTROENTERITIS AND COLITIS, UNSPECIFIED Status : Acute Current Visit: Yes Problem Details: Patient responding well to antibiotics, will continue to complete oral course at home. MRI ordered for Tuesday. Patient to follow-up next week for post hospital visit. GI consult placed. Ostomy output has decreased. Encouraged bland diet and advance as tolerated at home. - Patient Summary/Data Recommended Follow-up Testing/Procedures: Outpatient MRI ordered Follow-up with outpatient labs at recheck GI referral made to [place] - Patient Instructions Diet, Other: [place], advance as tolerated Activity: As Tolerated Driving: May Drive Today Showering/Bathing: May Shower Notify Provider of: Fever, Increased Pain, Nausea and/or Vomiting - Discharge Plan *PRESCRIPTION DRUG MONITORING PROGRAM REVIEWED*: Not Applicable *COPY OF PRESCRIPTION DRUG MONITORING REPORT IN PATIENT DANGELO: Not Applicable Prescriptions/Med Rec: Ciprofloxacin HCl [Cipro] 500 mg PO BID #14 tablet metroNIDAZOLE [Flagyl] 500 mg PO Q8H #21 tab Omeprazole 40 mg PO DAILY #30 capsule. Home Medications: Home Meds Cyclobenzaprine [Flexeril] 10 mg PO TID PRN 04/30/19 [History] Diphenoxylate HCl/Atropine [Lomotil] 1 tab PO DAILY PRN 09/08/19 [History] Melatonin/Kusum/Valerian [Medi-Doze Tablet] 2 tab PO BEDTIME PRN 09/08/19 [ History] Magnesium Oxide/Magnesium [Magnesium] 2 tab PO BEDTIME 09/09/19 [History] Non-Formulary Medication [NF Drug] 1 packet PO BID 09/09/19 [History] Non-Formulary Medication [NF Drug] 2 tab PO BEDTIME 09/09/19 [History] Acetaminophen [Tylenol] 650 mg PO Q4H PRN 01/14/20 [History] LORazepam [Lorazepam] 0.5 - 1 tab PO ASDIRECTED 01/14/20 [History] Ondansetron [Ondansetron ODT] 1 tab PO Q6H PRN 01/14/20 [History] Potassium Chloride 20 meq PO BEDTIME 01/14/20 [History] Acetaminophen [Tylenol] 650 mg PO Q4H PRN tablet 01/16/20 [Rx] Ciprofloxacin HCl [Cipro] 500 mg PO BID #14 tablet 01/16/20 [Rx] Omeprazole 40 mg PO DAILY #30 capsule. 01/16/20 [Rx] metroNIDAZOLE [Flagyl] 500 mg PO Q8H #21 tab 01/16/20 [Rx] Patient Handouts: Smoking Tobacco Information, Adult, Chronic Pancreatitis Referrals: Joaquina Haddad, [employer]ICE [Nurse Practitioner] - - Discharge Summary/Plan Comment DC Time >30 min.: No - General Info Date of Service: 01/16/20 Subjective Update: Patient was admitted on 01/14/2020 with symptoms of pancreatitis. The patient was admitted to acute care from the [facility] in [place], with initial blood work and evaluation done in the clinic. The patient had a three-day history of increasing left upper quadrant abdominal pain similar to her previous episodes of recurrent pancreatitis. She denied any recent alcohol use, etc. No recent history of heartburn, nausea, diarrhea, melena, gross hematochezia, or any food intolerance, including fatty foods, she did report some increased output from her ostomy. She has been treated with Toradol, Pepcid, Protonix, Dilaudid, Zofran and IV fluids. She has had extensive abdominal surgeries due to the familial polyposis. Patient was discussed with Dr. Narvaez and recommends that the patient have a MRI due to the most recent flare-up. Will also refer her to GI for consultation. Functional Status: Reports: Pain Controlled - Review of Systems General: Denies: Fever, Weakness, Chills HEENT: Reports: No Symptoms Pulmonary: Reports: No Symptoms Cardiovascular: Reports: No Symptoms Gastrointestinal: Reports: Abdominal Pain (mild with palpation to LLQ) Genitourinary: Reports: No Symptoms Musculoskeletal: Reports: No Symptoms Skin: Reports: No Symptoms Neurological: Reports: No Symptoms Psychiatric: Reports: Depression, Anxiety (controlled) - Patient Data Vitals - Most Recent: Last Vital Signs Temp 99.0 F 01/16/20 08:00 Pulse 66 01/16/20 08:00 Resp 18 01/16/20 08:00 BP 139/75 01/16/20 08:00 Pulse Ox 93 L 01/16/20 08:00 Weight - Most Recent: 171 lb 14.4 oz I&O - Last 24 hours: Intake & Output 01/15/20 01/16/20 01/16/20 22:59 06:59 14:59 Intake Total 975 885 900 Output Total 950 1350 3150 Balance 68 -788 -5199 Lab Results - Last 24 hrs: Laboratory Results - last 24 hr 01/16/20 01/16/20 Range/Units 08:20 08:20 WBC 5.8 (4.0-10.2) K/uL RBC 3.83 (3.77-5.09) M/uL Hgb 11.9 (11.7-15.5) g/dL Hct 36.4 (34.0-46.0) % MCV 95.0 (84.0-98.0) fL MCH 31.1 (28.2-33.3) pg MCHC 32.7 (31.7-36.0) g/dL RDW 12.5 (11.2-14.1) % Plt Count 160 (150-350) K/uL Neut % (Auto) 43.5 L (45.0-80.0) % Lymph % (Auto) 38.1 (10.0-50.0) % [place] % (Auto) 9.9 (2.0-14.0) % Eos % (Auto) 7.6 H (0.0-5.0) % Baso % (Auto) 0.9 (0.0-2.0) % Neut # (Auto) 2.51 (1.40-7.00) K/uL Lymph # (Auto) 2.20 (0.50-3.50) K/uL [place] # (Auto) 0.57 (0.00-1.00) K/uL Eos # (Auto) 0.44 (0.00-0.50) K/uL Baso # (Auto) 0.05 (0.00-0.20) K/uL Sodium 142 (136-145) mmol/L Potassium 3.2 L (3.5-5.1) mmol/L Chloride 109 H (98-107) mmol/L Carbon Dioxide 24.3 (21.0-32.0) mmol/L BUN 6 L (7-18) mg/dL Creatinine 0.72 (0.51-1.17) mg/dL Est Cr Clr Drug Dosing 78.21 mL/min Estimated GFR (MDRD) > 60 mL/min Glucose 80 (74-106) mg/dL Calcium 7.5 L (8.5-10.1) mg/dL Total Bilirubin 0.3 (0.2-1.0) mg/dL AST 37 (15-37) U/L ALT 79 H (12-78) U/L Alkaline Phosphatase 75 (46-116) IU/L Total Protein 5.4 L (6.4-8.2) g/dL Albumin 2.8 L (3.4-5.0) g/dL Amylase 136 H (25-115) U/L Lipase 544 H (73-393) U/L Med Orders - Current: Current Medications Acetaminophen (Tylenol) 650 mg PO Q4H PRN PRN Reason: Pain Last Admin: 01/15/20 19:36 Dose: 650 mg Acetaminophen (Tylenol) 650 mg RECTAL Q4H PRN PRN Reason: Pain/Fever Clotrimazole (Lotrimin Af 1% Crm) 1 gm TOP BID@ [facility] Last Admin: 01/16/20 09:01 Dose: Not Given Enoxaparin Sodium (Lovenox) 40 mg SUBCUT Q24H [facility] Last Admin: 01/15/20 16:52 Dose: 40 mg Famotidine (Pepcid) 20 mg IVPUSH BID@ [facility] Last Admin: 01/16/20 09:00 Dose: 20 mg Heparin Sodium (Porcine) (Heparin Lock Flush 100 Units/Ml) 500 units FLUSH ASDIRECTED PRN PRN Reason: Keep Vein Open Ciprofloxacin/Dextrose 200 mg/ (Premix) 100 mls @ 100 mls/hr IV Q12H [facility] Last Admin: 01/16/20 04:06 Dose: 100 mls/hr Metronidazole 500 mg/ Premix 100 mls @ 100 mls/hr IV Q8H [facility] Last Admin: 01/16/20 09:01 Dose: 100 mls/hr Ketorolac Tromethamine (Toradol) 15 mg IVPUSH Q6H PRN PRN Reason: Pain (moderate 4-6) Stop: 01/19/20 16:31 Last Admin: 01/15/20 10:30 Dose: 15 mg Lorazepam (Ativan) 1 mg IVPUSH Q6H PRN PRN Reason: Anxiety Miscellaneous Information (Remove Patch) 1 ea TRDERM DAILY@1999 [facility] Nicotine (Habitrol) 7 mg TRDERM DAILY@1999 [facility] Last Admin: 01/15/20 20:31 Dose: 7 mg Ondansetron HCl (Zofran Odt) 4 mg PO Q6H PRN PRN Reason: Nausea/Vomiting Pantoprazole Sodium (Protonix Iv) 40 mg IVPUSH BID@ [facility] Last Admin: 01/16/20 09:00 Dose: 40 mg Sodium Chloride (Saline Flush) 10 ml FLUSH ASDIRECTED PRN PRN Reason: Keep Vein Open Last Admin: 01/16/20 01:51 Dose: 10 ml Sodium Chloride (Saline Flush) 10 ml FLUSH Q12HR [facility] Last Admin: 01/16/20 09:01 Dose: 10 ml Sodium Chloride (Saline Flush) 10 ml FLUSH ASDIRECTED PRN PRN Reason: Keep Vein Open Discontinued Medications Diatrizoate Meglum/Diatrizoate Sod (Gastrografin 37%) 30 ml PO ONETIME ONE Stop: 01/14/20 13:01 Last Admin: 01/14/20 13:40 Dose: 30 ml Famotidine (Pepcid) 20 mg IVPUSH Q12H [facility] Famotidine (Pepcid) 20 mg IVPUSH Q12H [facility] Last Admin: 01/14/20 15:41 Dose: 20 mg Hydromorphone HCl (Dilaudid) 1 mg IVPUSH ONETIME ONE Stop: 01/14/20 11:41 Last Admin: 01/14/20 12:30 Dose: 1 mg Hydromorphone HCl (Dilaudid) 1 mg IVPUSH Q6H PRN PRN Reason: Pain (severe 7-10) Last Admin: 01/15/20 22:24 Dose: 1 mg Sodium Chloride (Normal Saline) 1,000 mls @ 500 mls/hr IV ASDIRECTED [facility] Last Admin: 01/14/20 10:17 Dose: 500 mls/hr Sodium Chloride (Normal Saline) 1,000 mls @ 125 mls/hr IV ASDIRECTED [facility] Last Admin: 01/14/20 12:28 Dose: 125 mls/hr Ciprofloxacin/Dextrose 200 mg/ (Premix) 100 mls @ 100 mls/hr IV Q12H [facility] Potassium Chloride/Dextrose/Sod Cl (D5 1/2 Ns W/ 20 Meq/L Kcl) 1,000 mls @ 75 mls/hr IV ASDIRECTED [facility] Last Admin: 01/15/20 18:47 Dose: 75 mls/hr Metronidazole 500 mg/ Premix 100 mls @ 100 mls/hr IV Q8H [facility] Iopamidol (Isovue-300 (61%)) 100 ml IVPUSH ONETIME ONE Stop: 01/14/20 13:01 Last Admin: 01/14/20 13:40 Dose: 100 ml Ketorolac Tromethamine (Toradol) 30 mg IVPUSH ONETIME ONE Stop: 01/14/20 09:47 Last Admin: 01/14/20 10:31 Dose: 30 mg Lorazepam (Ativan) 1 mg PO ONETIME ONE Stop: 01/14/20 09:46 Last Admin: 01/14/20 10:28 Dose: 1 mg Ondansetron HCl (Zofran) 4 mg IVPUSH ONETIME ONE Stop: 01/14/20 09:47 Last Admin: 01/14/20 10:29 Dose: 4 mg Ondansetron HCl (Zofran) 4 mg IVPUSH Q6H PRN PRN Reason: Nausea/Vomiting Last Admin: 01/16/20 01:50 Dose: 4 mg Pantoprazole Sodium (Protonix Iv) 40 mg IVPUSH Q12H [facility] Pantoprazole Sodium (Protonix Iv) 40 mg IVPUSH Q12H [facility] Last Admin: 01/14/20 15:41 Dose: 40 mg Promethazine HCl (Phenergan) 25 mg IM ONETIME ONE Stop: 01/16/20 04:20 Last Admin: 01/16/20 04:31 Dose: 25 mg Temazepam (Restoril) 15 mg PO DAILY@1999 PRN PRN Reason: Insomnia
== END 2020-01-16 15:20 | disposition home or self-care (01) | DRG 440 ==
LOC: LL.ACU 09:00 → UNDOADMIN 13:41 → LL.MS 13:41
PROVIDERS: ADMIT Family Medicine; ATTEND Family Medicine
DX: K86.1 Other chronic pancreatitis (principal); D12.6 Benign neoplasm of colon, unspecified; H54.7 Unspecified visual loss; I10 Essential (primary) hypertension; G47.30 Sleep apnea, unspecified; K52.9 Noninfective gastroenteritis and colitis, unspecified; M19.90 Unspecified osteoarthritis, unspecified site; G89.29 Other chronic pain; M54.9 Dorsalgia, unspecified; M54.2 Cervicalgia; G43.909 Migraine, unspecified, not intractable, without status migrainosus; F41.9 Anxiety disorder, unspecified; F32.9 Major depressive disorder, single episode, unspecified; F43.10 Post-traumatic stress disorder, unspecified; E87.6 Hypokalemia; E88.09 Other disorders of plasma-protein metabolism, not elsewhere classified; E78.1 Pure hyperglyceridemia; E83.42 Hypomagnesemia; F17.210 Nicotine dependence, cigarettes, uncomplicated; E66.9 Obesity, unspecified; Z93.2 Ileostomy status; Z88.5 Allergy status to narcotic agent; Z79.899 Other long term (current) drug therapy; Z99.81 Dependence on supplemental oxygen; Z86.010 Personal history of colon polyps; Z90.49 Acquired absence of other specified parts of digestive tract; Z68.27 Body mass index [BMI] 27.0-27.9, adult
CPT/HCPCS: 36415; 74022; 74177; 80053; 80061; 80307; 81001; 82150; 82272; 83036; 83605; 83690; 83735; 84443; 85025; 85610; 85730; 86140; A9270-GY; C9113; J0744; J1170; J1650; J1885; J2060; J2405; J2550; J3480; J3490; J7030; Q9963; Q9967

== ENCOUNTER 2020-04-02 18:13 | Emergency (ER) | payer OTHER ==
[2020-04-02] MEDS: Sodium Chloride 0.9% 1,000 ML IV ONE (18:55)
[2020-04-02] MEDS: Sodium Chloride 0.9% 10 ML Syringe FLUSH PRN (18:57)
[2020-04-02] MEDS: HYDROmorphone 1 MG/ML Syringe IVPUSH ONE ×2 (19:01→21:12)
[2020-04-02 19:03] LABS: CHLORIDE,CL 103 mmol/L (98-107); SODIUM,NA 139 mmol/L (136-145)
[2020-04-02] MEDS: Iopamidol 612 MG/ML 100 ML Bottle IVPUSH ONE (19:37)
[2020-04-02] MEDS: Sodium Chloride 0.9% 1,000 ML IV SCH (20:38)
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
== END 2020-04-02 21:15 | disposition home or self-care (01) ==
LOC: LL.ED 18:13
DX: K85.90 Acute pancreatitis without necrosis or infection, unspecified (principal); I10 Essential (primary) hypertension; E66.9 Obesity, unspecified; Z68.28 Body mass index [BMI] 28.0-28.9, adult; F17.210 Nicotine dependence, cigarettes, uncomplicated; Z88.5 Allergy status to narcotic agent; Z79.899 Other long term (current) drug therapy
CPT/HCPCS: 36415; 74177; 80053; 82150; 83605; 83690; 85025; 96374; 96376; 99284; 99284-25; J1170; J7030; Q9967

== ENCOUNTER 2021-08-01 09:19 | Emergency (ER) | payer OTHER ==
[2021-08-01] MEDS ORDERED: Sodium Chloride 0.9% 1,000 ML IV ONE ×2 (09:54→11:08)
[2021-08-01] MEDS ORDERED: Diazepam 5 MG Tab PO ONE (10:12)
[2021-08-01 10:26] LABS: ANION GAP 14.2 meq/L (7-15); CHLORIDE,CL 105 mmol/L (98-107); SODIUM,NA 143 mmol/L (136-145)
[2021-08-01] MEDS ORDERED: Potassium Chloride 10 MEQ Tab.ER PO ONE (11:13)
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
== END 2021-08-01 12:40 | disposition home or self-care (01) ==
LOC: LL.ED 09:19
DX: E86.0 Dehydration (principal); R25.2 Cramp and spasm; R74.8 Abnormal levels of other serum enzymes; I10 Essential (primary) hypertension; E66.9 Obesity, unspecified; Z72.0 Tobacco use; Z88.5 Allergy status to narcotic agent; Z79.899 Other long term (current) drug therapy
CPT/HCPCS: 36415; 36569; 80053; 81003; 83735; 85025; 96365; 99284; A9270; J1642; J3475; J7030

== ENCOUNTER 2024-03-06 16:55 | Emergency (ER) | payer OTHER ==
[2024-03-06 16:59] VITALS: BP 151/84; PULSE 105
== END 2024-03-06 18:00 | disposition home or self-care (01) ==
LOC: LL.ED 16:55
DX: S41.151A Open bite of right upper arm, initial encounter (principal); I10 Essential (primary) hypertension; E66.9 Obesity, unspecified; Z68.28 Body mass index [BMI] 28.0-28.9, adult; Z90.49 Acquired absence of other specified parts of digestive tract; Z90.410 Acquired total absence of pancreas; Z79.899 Other long term (current) drug therapy; Z79.2 Long term (current) use of antibiotics; Z79.891 Long term (current) use of opiate analgesic; Z88.5 Allergy status to narcotic agent; W54.0XXA Bitten by dog, initial encounter
CPT/HCPCS: 99283

== ENCOUNTER 2024-09-29 18:34 | Emergency (ER) | payer OTHER ==
[2024-09-29 19:08] LABS: BASOPHILS ABSOLUTE AUTO 0.05 K/uL (0.00-0.20); BASOPHILS PERCENT AUTO 0.6 % (0.0-2.0); EOSINOPHILS PERCENT AUTO 2.4 % (0.0-5.0); HEMATOCRIT 41.9 % (34.0-46.0); HEMOGLOBIN 13.4 g/dL (11.7-15.5); IMMATURE GRAN ABSOLUTE AUTO 0.03 10^3/uL (0.00-0.04); IMMATURE GRAN PERCENT AUTO 0.4 % (0.0-0.4); LYMPHOCYTES ABSOLUTE AUTO 1.97 K/uL (0.50-3.50); LYMPHOCYTES PERCENT AUTO 23.9 % (10.0-50.0); MEAN CORPUSCULAR HEMOGLOBIN 29.6 pg (28.2-33.3); MEAN CORPUSCULAR VOLUME 92.7 fL (84.0-98.0); MONOCYTES ABSOLUTE AUTO 1.09 K/uL (0.00-1.00); MONOCYTES PERCENT AUTO 13.2 % (2.0-14.0); NEUTROPHILS ABSOLUTE AUTO 4.89 K/uL (1.40-7.00); NEUTROPHILS PERCENT AUTO 59.5 % (45.0-80.0); PLATELET COUNT,PLT 164 K/uL (150-350); RED BLOOD CELL COUNT 4.52 M/uL (3.77-5.09); RED CELL DISTRIBUTION WIDTH 13.6 % (11.2-14.1); WHITE BLOOD CELL COUNT,WBC 8.2 K/uL (4.0-10.2)
[2024-09-29] MEDS: cloNIDine 0.1 MG Tab PO ONE (19:25)
[2024-09-29] MEDS: Ketorolac 30 MG/ML SDV IM ONE (19:25)
[2024-09-29 19:39] LABS: ALBUMIN 3.4 g/dL (3.4-5.0); ANION GAP 8.1 meq/L (7-15); BILIRUBIN TOTAL 0.4 mg/dL (0.2-1.0); CALCIUM 8.6 mg/dL (8.5-10.1); CARBON DIOXIDE,CO2 25.9 mmol/L (21.0-32.0); CREATININE 1.2 mg/dL (0.51-1.17); EST CRCL DRUG DOSING (CG) 43.75 mL/min; POTASSIUM,K 3.9 mmol/L (3.5-5.1)
[2024-09-29] MEDS ORDERED: Magnesium Sulfate/Water Premix 2 GM in Premix Bag 1 BAG IV ONE (20:39)
[2024-09-29] MEDS ORDERED: Sodium Chloride 0.9% 10 ML Syringe FLUSH PRN (20:39)
== END 2024-09-29 21:00 | disposition home or self-care (01) ==
LOC: LL.ED 18:34
DX: R51.9 Headache, unspecified (principal); E83.42 Hypomagnesemia; I10 Essential (primary) hypertension; E66.9 Obesity, unspecified; Z88.5 Allergy status to narcotic agent; Z79.899 Other long term (current) drug therapy; Z90.49 Acquired absence of other specified parts of digestive tract; Z90.710 Acquired absence of both cervix and uterus; Z68.29 Body mass index [BMI] 29.0-29.9, adult
CPT/HCPCS: 36415; 80053; 83735; 84443; 84484; 85025; 87428-QW; 93005; 96372; 99284; A9270-GY; J1885

== ENCOUNTER 2025-01-10 03:34 | Emergency (ER) | payer OTHER ==
[2025-01-10] MEDS: Ondansetron 4 MG/2 ML SDV IVPUSH ONE (04:21)
[2025-01-10] MEDS: Sodium Chloride 0.9% 1,000 ML IV SCH ×2 (04:21→05:07)
[2025-01-10] MEDS: Sodium Chloride 0.9% 10 ML Syringe FLUSH PRN (04:22)
[2025-01-10 04:24] LABS: BASOPHILS ABSOLUTE AUTO 0.06 K/uL (0.00-0.20); BASOPHILS PERCENT AUTO 0.8 % (0.0-2.0); EOSINOPHILS ABSOLUTE AUTO 0.16 K/uL (0.00-0.50); EOSINOPHILS PERCENT AUTO 2.2 % (0.0-5.0); HEMATOCRIT 40.9 % (34.0-46.0); HEMOGLOBIN 13.5 g/dL (11.7-15.5); IMMATURE GRAN ABSOLUTE AUTO 0.01 10^3/uL (0.00-0.04); IMMATURE GRAN PERCENT AUTO 0.1 % (0.0-0.4); LYMPHOCYTES ABSOLUTE AUTO 2.23 K/uL (0.50-3.50); LYMPHOCYTES PERCENT AUTO 31.1 % (10.0-50.0); MEAN CORPUSCULAR HEMOGLOBIN 29.6 pg (28.2-33.3); MEAN CORPUSCULAR VOLUME 89.7 fL (84.0-98.0); MONOCYTES ABSOLUTE AUTO 0.61 K/uL (0.00-1.00); MONOCYTES PERCENT AUTO 8.5 % (2.0-14.0); NEUTROPHILS ABSOLUTE AUTO 4.11 K/uL (1.40-7.00); NEUTROPHILS PERCENT AUTO 57.3 % (45.0-80.0); PLATELET COUNT,PLT 176 K/uL (150-350); RED BLOOD CELL COUNT 4.56 M/uL (3.77-5.09); RED CELL DISTRIBUTION WIDTH 14.2 % (11.2-14.1); WHITE BLOOD CELL COUNT,WBC 7.2 K/uL (4.0-10.2)
[2025-01-10 04:47] LABS: CALCIUM 9.2 mg/dL (8.5-10.1); CARBON DIOXIDE,CO2 25.7 mmol/L (21.0-32.0); CREATININE 1.73 mg/dL (0.51-1.17); EST CRCL DRUG DOSING (CG) 30.35 mL/min; MAGNESIUM 1.6 mg/dL (1.8-2.4); POTASSIUM,K 3.1 mmol/L (3.5-5.1)
[2025-01-10 04:50] LABS: ANION GAP 16.4 meq/L (7-15)
[2025-01-10 04:58] LABS: LACTIC ACID 3.8 mmol/L (0.4-2.0)
[2025-01-10] MEDS: Potassium Chloride 20 MEQ Tab.ER PO ONE (05:14)
[2025-01-10] MEDS: Magnesium Oxide 400 MG Tab PO ONE (05:14)
== END 2025-01-10 09:10 | disposition home or self-care (01) ==
LOC: LL.ED 03:34
DX: N17.9 Acute kidney failure, unspecified (principal); E87.6 Hypokalemia; E83.42 Hypomagnesemia; I10 Essential (primary) hypertension; E66.9 Obesity, unspecified; Z79.899 Other long term (current) drug therapy; Z88.5 Allergy status to narcotic agent; Z90.49 Acquired absence of other specified parts of digestive tract; Z90.710 Acquired absence of both cervix and uterus
CPT/HCPCS: 36415; 80048; 83605; 83735; 85025; 96361; 96374; 99285-25; A9270-GY; J2405; J7030

== ENCOUNTER 2025-01-17 12:42 | Day surgery (SDC) | payer OTHER ==
[~2025-01-17 12:42] MED LIST: Midazolam 1 MG/ML 2 ML SDV ONE; Propofol 200 MG/20 ML SDV ONE; Sodium Chloride 0.9% 10 ML Syringe FLUSH PRN
[2025-01-17] MEDS: Lactated Ringers 1,000 ML IV SCH (14:06)
[2025-01-17] MEDS ORDERED: Glycopyrrolate 0.2 MG/ML SDV IVPUSH ONE (14:10)
== END 2025-01-17 15:15 | disposition home or self-care (01) ==
LOC: LL.SDS 12:42
PROVIDERS: ATTEND Surgery
DX: D13.2 Benign neoplasm of duodenum (principal); D13.91 Familial adenomatous polyposis; K21.9 Gastro-esophageal reflux disease without esophagitis; F31.9 Bipolar disorder, unspecified; Z87.891 Personal history of nicotine dependence; Z79.899 Other long term (current) drug therapy; Z88.5 Allergy status to narcotic agent
CPT/HCPCS: J1596; J2250; J2704; J7120

== ENCOUNTER 2025-08-15 07:35 | Observation (INO) | payer OTHER ==
[2025-08-15] MEDS ORDERED: Naloxone 0.4 MG/ML SDV IVPUSH PRN (07:43)
[2025-08-15 08:09] LABS: BASOPHILS ABSOLUTE AUTO 0.04 K/uL (0.00-0.20); BASOPHILS PERCENT AUTO 0.3 % (0.0-2.0); EOSINOPHILS ABSOLUTE AUTO 0.05 K/uL (0.00-0.50); EOSINOPHILS PERCENT AUTO 0.4 % (0.0-5.0); IMMATURE GRAN ABSOLUTE AUTO 0.02 10^3/uL (0.00-0.04); IMMATURE GRAN PERCENT AUTO 0.2 % (0.0-0.4); LYMPHOCYTES ABSOLUTE AUTO 2.77 K/uL (0.50-3.50); LYMPHOCYTES PERCENT AUTO 21.4 % (10.0-50.0); MONOCYTES ABSOLUTE AUTO 0.88 K/uL (0.00-1.00); MONOCYTES PERCENT AUTO 6.8 % (2.0-14.0); NEUTROPHILS ABSOLUTE AUTO 9.19 K/uL (1.40-7.00); NEUTROPHILS PERCENT AUTO 70.9 % (45.0-80.0); PLATELET COUNT,PLT 179 K/uL (150-350); RED BLOOD CELL COUNT 4.72 M/uL (3.77-5.09); RED CELL DISTRIBUTION WIDTH 14.5 % (11.2-14.1); WHITE BLOOD CELL COUNT,WBC 13.0 K/uL (4.0-10.2)
[2025-08-15] MEDS: Sodium Chloride 0.9% 10 ML Syringe FLUSH PRN (08:09)
[2025-08-15] MEDS: Ondansetron 4 MG/2 ML SDV IVPUSH ONE ×2 (08:11→13:59)
[2025-08-15 08:27] LABS: ALANINE AMINOTRANSFERASE,ALT 99.0 U/L (12-78); ASPARTATE AMNIOTRANSFERASE,AST 51.0 U/L (15-37); BILIRUBIN TOTAL 0.8 mg/dL (0.2-1.0); BLOOD UREA NITROGEN,BUN 18.0 mg/dL (7-18); CARBON DIOXIDE,CO2 23.5 mmol/L (21.0-32.0); CHLORIDE,CL 103.0 mmol/L (98-107); CREATININE 0.92 mg/dL (0.51-1.17); EST CRCL DRUG DOSING (CG) 56.31 mL/min; GLUCOSE RANDOM 107.0 mg/dL (70-99); POTASSIUM,K 3.7 mmol/L (3.5-5.1); PROTEIN TOTAL,TP 8.0 g/dL (6.4-8.2); SODIUM,NA 139.0 mmol/L (136-145)
[2025-08-15 08:31] LABS: ESTIMATED GFR 69.0 mL/min (>=60)
[2025-08-15] MEDS: Orphenadrine 60 MG/2 ML Inj IV ONE (08:34)
[2025-08-15] MEDS: Iopamidol 612 MG/ML 100 ML Bottle IVPUSH STA (09:20)
[2025-08-15 12:40] LABS: LACTIC ACID 1.2 mmol/L (0.4-2.0)
[2025-08-15] MEDS: Potassium Chloride 10 MEQ Tab.ER PO ONE (12:48)
[2025-08-15] MEDS: Lactated Ringers 1,000 ML IV SCH (15:37)
[2025-08-15] MEDS: LORazepam 2 MG/ML SDV IVPUSH PRN (15:43)
[2025-08-15] MEDS: Ondansetron 4 MG/2 ML SDV IVPUSH PRN (19:49)
[2025-08-15] MEDS ORDERED: Non-Formulary Medication 1 Each (Prazosin Hcl [Prazosin] 2 MG Capsule) PO SCH (20:00)
[2025-08-16 08:21] VITALS: PULSE 61
[2025-08-16 08:57] LABS: MEAN PLATELET VOLUME 10.30 fL (7.00-11.50); PLATELET COUNT,PLT 152 K/uL (150-350); RED BLOOD CELL COUNT 4.12 M/uL (3.77-5.09); RED CELL DISTRIBUTION WIDTH 14.6 % (11.2-14.1); WHITE BLOOD CELL COUNT,WBC 9.9 K/uL (4.0-10.2)
[2025-08-16 09:21] LABS: ALANINE AMINOTRANSFERASE,ALT 67.0 U/L (12-78); ASPARTATE AMNIOTRANSFERASE,AST 35.0 U/L (15-37); BILIRUBIN TOTAL 0.6 mg/dL (0.2-1.0); BLOOD UREA NITROGEN,BUN 9.0 mg/dL (7-18); CARBON DIOXIDE,CO2 28.6 mmol/L (21.0-32.0); CHLORIDE,CL 108.0 mmol/L (98-107); CREATININE 0.82 mg/dL (0.51-1.17); EST CRCL DRUG DOSING (CG) 63.18 mL/min; ESTIMATED GFR 79.0 mL/min (>=60); GLUCOSE RANDOM 82.0 mg/dL (70-99); POTASSIUM,K 3.7 mmol/L (3.5-5.1); PROTEIN TOTAL,TP 6.2 g/dL (6.4-8.2); SODIUM,NA 142.0 mmol/L (136-145)
[2025-08-16 16:51] VITALS: BP 136/59
== END 2025-08-16 18:24 ==
LOC: LL.ED 07:35 → LL.MS 14:15
PROVIDERS: ADMIT Internal Medicine; ATTEND Internal Medicine
DX: K85.90 Acute pancreatitis without necrosis or infection, unspecified (principal); I10 Essential (primary) hypertension; E66.9 Obesity, unspecified; Z93.2 Ileostomy status; Z88.5 Allergy status to narcotic agent; Z68.30 Body mass index [BMI] 30.0-30.9, adult; Z87.891 Personal history of nicotine dependence; Z79.899 Other long term (current) drug therapy
CPT/HCPCS: 36415; 74177; 80053; 83605; 83690; 83735; 85025; 85027; 96361; 96374; 96375; 96376; 99223-GT; 99239-GT; 99284; 99285-25; A9270-GY; G0378; J1171; J2060; J2360; J2405; J7030; J7120; Q3014; Q9967